=== PATIENT | female | born 1965 | race Caucasian/White ===

== ENCOUNTER 2020-02-25 22:19 | Emergency (ER) | payer OTHER ==
[2020-02-25 22:29] VITALS: TEMP 97.6
[2020-02-25] MEDS ORDERED: diphenhydrAMINE 50 MG/ML 1 ML VIAL IVP STA (22:35)
[2020-02-25] MEDS ORDERED: SODIUM CHLORIDE 0.9% 1,000 ML IV STA (22:35)
[2020-02-25] MEDS ORDERED: HYDROmorphone 0.5 MG/0.5 ML SYRINGE IVP STA (22:35)
[2020-02-25] MEDS ORDERED: METOCLOPRAMIDE 5 MG/ML 2 ML VIAL IVP STA (22:35)
[2020-02-25 23:08] LABS: Basophils # (A) 0.1 k/uL (0-0.2); Basophils % (A) 1 %; Eosinophils # (A) 0.1 k/uL (0-0.7); Eosinophils % (A) 1 %; HCT 37.7 % (34.0-46.0); HGB 12.9 gm/dL (11.4-16.0); Lymphocytes # (A) 2.9 k/uL (1.0-4.8); Lymphocytes % (A) 32 %; MCH 33.3 pg (25.0-35.0); MCHC 34.3 g/dL (31.0-37.0); MCV 97.1 fL (80.0-100.0); Mean Platelet Volume 7.3; Monocytes # (A) 0.4 k/uL (0-1.0); Monocytes % (A) 5 %; Neutrophils # (A) 5.4 k/uL (1.3-7.7); Neutrophils % (A) 60 %; Platelet Count 264 k/uL (150-450); RBC 3.89 m/uL (3.80-5.40); RDW 12.5 % (11.5-15.5)
[2020-02-25 23:15] LABS: African American GFR (CKD) >90 (>60 ml/min/1.73 sqM); Albumin 4.1 g/dL (3.5-5.0); Amylase 86 U/L (30-110); Anion Gap 8 mmol/L; Carbon Dioxide 21 mmol/L (22-30); Chloride 109 mmol/L (98-107); Glucose 149 mg/dL (74-99); Non-African American GFR(CKD) >90 (>60 ml/min/1.73 sqM); Sodium 138 mmol/L (137-145); Total Bilirubin 0.5 mg/dL (0.2-1.3); Total Protein 6.9 g/dL (6.3-8.2)
[2020-02-25 23:17] LABS: ALT 19 U/L (4-34); AST 29 U/L (14-36); Blood Urea Nitrogen 25 mg/dL (7-17); Potassium 4.3 mmol/L (3.5-5.1)
[2020-02-25 23:18] LABS: Alkaline Phosphatase 73 U/L (38-126)
--- NOTE | 2020-02-26 00:43 | US ---
EXAMINATION TYPE: US abdomen limited DATE OF EXAM: 02/26/2020 COMPARISON: NONE CLINICAL HISTORY: RUQ pain; vomiting. Difficult and limited exam due to overlying bowel gas EXAM MEASUREMENTS: Liver Length: 16.2 cm Gallbladder Wall: 0.4 cm CBD: 0.4 cm Right Kidney: 4.7 cm Pancreas: Obscured by bowel gas Liver: Limited visualization. Visualized portions appear wnl Gallbladder: Wall thickened, slightly hydropic. Possible tiny echogenic foci visualized Evidence for sonographic Fish's sign: Yes CBD: wnl as visualized Right Kidney: Unable to visualized in it's entirety due to overlying bowel gas. wnl as visualized IMPRESSION: No gallstones or dilated ducts. Gallbladder wall borderline thickened. No pericholecystic fluid seen.
[2020-02-26] MEDS ORDERED: ONDANSETRON 4 MG ODT STARTER PACK 2 TAB BTL PO STA (01:18)
--- NOTE | 2020-02-26 01:20 | ED ---
Abdominal Pain HPI - General Chief Complaint: Abdominal Pain Stated Complaint: Abd pain Time Seen by Provider: 02/25/20 22:33 Source: patient, EMS Mode of arrival: EMS Limitations: no limitations - History of Present Illness Initial Comments: 55-year-old female patient presents to the emergency department today for evaluation of right upper quadrant abdominal pain and vomiting. Patient states that she started vomiting approximately an hour and half ago. States that she became sweaty when this occurred. She did come in by ambulance did receive Zofr an which did not help. Patient states she was feeling fine throughout the day. She denies any torso breath, chest pain, or upper back pain. Denies any fever or chills. Symptoms started about 1.5 hours after eating a left over sub. Denies history of abdominal surgery. Denies constipation or diarrhea. Denies any hematochezia, melena, or hematemesis. Patient denies any recent rash, cough, shortness of breath, chest pain, numbness, tingling, dizziness, weakness, hematuria, dysuria, urinary urgency, urinary frequency, headache, visual changes, or any other complaints. - Related Data Allergies Allergy/AdvReac Type Severity Reaction Status Date / Time No Known Allergies Allergy Verified 02/25/20 22:29 Review of Systems ROS Statement: Those systems with pertinent positive or pertinent negative responses have been documented in the HPI. ROS Other: All systems not noted in ROS Statement are negative. Past Medical History Past Medical History: Thyroid Disorder History of Any Multi-Drug Resistant Organisms: None Reported Past Surgical History: Bariatric Surgery Additional Past Surgical History / Comment(s): bariatric sleeve Past Psychological History: No Psychological Hx Reported Smoking Status: Current every day smoker Past Alcohol Use History: None Reported Past Drug Use History: None Reported General Exam Limitations: no limitations General appearance: alert, in no apparent distress, other (This is a well- developed, well-nourished adult female patient in no acute distress. Vital sig ns upon presentation are temperature 97.6F, pulse 58, respirations 20, blood pressure 124/73, pulse ox 100% on room air.) Eye exam: Present: normal appearance, PERRL, EOMI. Absent: scleral icterus, conjunctival injection, periorbital swelling Respiratory exam: Present: normal lung sounds bilaterally. Absent: respiratory distress, wheezes, rales, rhonchi, stridor Cardiovascular Exam: Present: regular rate, normal rhythm, normal heart sounds. Absent: systolic murmur, diastolic murmur, rubs, gallop, clicks GI/Abdominal exam: Present: soft, tenderness (Upper abdominal tenderness), normal bowel sounds. Absent: distended, guarding, rebound, rigid Neurological exam: Present: alert, oriented X3, CN II-XII intact Psychiatric exam: Present: normal affect, normal mood Skin exam: Present: warm, dry, intact, normal color. Absent: rash Course Vital Signs 02/25/20 02/26/20 22:21 01:01 Temperature 97.6 F Pulse Rate 58 L 56 L Respiratory 20 16 Rate Blood Pressure 124/73 88/45 O2 Sat by Pulse 100 96 Oximetry Medical Decision Making - Medical Decision Making 55-year-old female patient presents to the emergency department today for evaluation of upper abdominal pain and vomiting. Physical examination did reveal some mild upper abdominal tenderness. Labs reviewed and are unremarkable. Ultrasound of the right upper quadrant was obtained and did show a mildly thickened gallbladder wall with no dilated ducts or pericholecystic fluid. She is afebrile. She is given IV fluids, nausea medication. Upon reevaluation she does report improvement of symptoms. She is resting comfortably in bed. She does feel comfortable being discharged home at this time. She'll be given a starter pack for Zofran. She is instructed to start with clear liquid diet and advance as tolerated. Return parameters were discussed in detail. She verbalizes understanding and agrees with this plan. - Lab Data Result diagrams: 02/25/20 22:50 02/25/20 22:50 Lab Results 02/25/20 02/25/20 02/25/20 Range/Units 22:50 22:50 22:50 WBC 9.0 (3.8-10.6) k/uL RBC 3.89 (3.80-5.40) m/uL Hgb 12.9 (11.4-16.0) gm/dL Hct 37.7 (34.0-46.0) % MCV 97.1 (80.0-100.0) fL MCH 33.3 (25.0-35.0) pg MCHC 34.3 (31.0-37.0) g/dL RDW 12.5 (11.5-15.5) % Plt Count 264 (150-450) k/uL Neutrophils % 60 % Lymphocytes % 32 % Monocytes % 5 % Eosinophils % 1 % Basophils % 1 % Neutrophils # 5.4 (1.3-7.7) k/uL Lymphocytes # 2.9 (1.0-4.8) k/uL Monocytes # 0.4 (0-1.0) k/uL Eosinophils # 0.1 (0-0.7) k/uL Basophils # 0.1 (0-0.2) k/uL Sodium 138 (137-145) mmol/L Potassium 4.3 (3.5-5.1) mmol/L Chloride 109 H (98-107) mmol/L Carbon Dioxide 21 L (22-30) mmol/L Anion Gap 8 mmol/L BUN 25 H (7-17) mg/dL Creatinine 0.68 (0.52-1.04) mg/dL Est GFR (CKD-EPI)AfAm >90 (>60 ml/min/1.73 sqM) Est GFR (CKD-EPI)NonAf >90 (>60 ml/min/1.73 sqM) Glucose 149 H (74-99) mg/dL Calcium 10.0 (8.4-10.2) mg/dL Total Bilirubin 0.5 (0.2-1.3) mg/dL AST 29 (14-36) U/L ALT 19 (4-34) U/L Alkaline Phosphatase 73 (38-126) U/L Troponin I <0.012 (0.000-0.034) ng/mL Total Protein 6.9 (6.3-8.2) g/dL Albumin 4.1 (3.5-5.0) g/dL Amylase 86 (30-110) U/L Lipase 114 (23-300) U/L - EKG Data -: EKG Interpreted by Fl EKG Comments: EKG obtained at 2235 shows sinus tachycardia with a ventricular rate of 54, MO interval 148, QRS duration 80, QT 486, QTc 460. No evidence of ST elevation or depression. - Radiology Data Radiology results: report reviewed Ultrasound of the right upper quadrant abdomen is obtained. Report was reviewed in its entirety. Impression by Dr. Mcwilliams shows no gallstones or dilated ducts. Gallbladder wall borderline thickened. No pericholecystic fluid seen. Disposition Clinical Impression: Abdominal pain, Vomiting Disposition: HOME SELF-CARE Condition: Good Instructions (If sedation given, give patient instructions): Acute Nausea and Vomiting (ED), Abdominal Pain (ED) Additional Instructions: Start with clear liquid diet and advance as tolerated. Take zofran every 6 hours as needed. Follow-up with the primary care physician for recheck in 1-2 days. Return to the emergency department immediately for any new, worsening, or concerning symptoms. Is patient prescribed a controlled substance at d/c from ED?: No Referrals: Prince Gamble MD [Primary Care Provider] - 1-2 days Time of Disposition: 01:19
[2020-02-26 01:38] VITALS: BP 108/85; PULSE 65; RESP 18
== END 2020-02-26 01:38 | disposition home or self-care (01) ==
LOC: EC 22:19
DX: R10.11 Right upper quadrant pain (principal); R11.10 Vomiting, unspecified; F17.200 Nicotine dependence, unspecified, uncomplicated
CPT/HCPCS: 93005; 80053; 82150; 83690; 84484; 85025; 76705; 99285; 96374; 96375 ×2; 96361; J1200; J2765; S0119; J1170

== ENCOUNTER → 2020-03-18 | Outpatient (CLI) | payer OTHER ==
--- NOTE | 2020-03-18 09:54 | NM ---
EXAMINATION TYPE: NM hepatobiliary w EF DATE OF EXAM: 03/18/2020 COMPARISON: Ultrasound abdomen limited February 26, 2020. HISTORY: Right upper quadrant pain and vomiting. TECHNIQUE: After the intravenous administration of 4.7 mCi Tc 99m Mebrofenin hepatobiliary scintigrap hy is performed. Immediate images post injection. FINDINGS: There is satisfactory initial accumulation of tracer by the liver. The gallbladder is visualized wit hin 30 minutes. The small bowel activity is noted within 60 minutes. At one hour 8 ounces of oral e nsure plus is given to mimic CCK and gallbladder ejection fraction is calculated at less than 5 %, di minished from the normal range. Therefore there is no scintigraphic evidence of cystic or common tai e duct obstruction to suggest acute cholecystitis . Overall diminished ejection fraction consistent w ith chronic cholecystitis and underlying gallbladder dyskinesia IMPRESSION: Ejection fraction measured less than 5%, scintigraphic findings consistent with underlyin g gallbladder dyskinesia.
== END | disposition home or self-care (01) ==
LOC: RADNMMAIN 06:40
PROVIDERS: ATTEND Internal Medicine
DX: R10.11 Right upper quadrant pain (principal)
CPT/HCPCS: 78226; A9537

== ENCOUNTER → 2020-04-06 | Outpatient (CLI) | payer OTHER ==
--- NOTE | 2020-04-06 11:28 | XR ---
EXAMINATION TYPE: XR chest 2V DATE OF EXAM: 04/06/2020 COMPARISON: NONE HISTORY: Shortness of breath TECHNIQUE: Frontal and lateral views of the chest are obtained. FINDINGS: Scattered senescent parenchymal changes noted. Hyperinflation compatible with COPD. Basilar atelectasis and/or infiltrates with small pleural effusions. Correlate for pneumonia. Progres s studies are recommended. Heart size is stable. Mediastinal structures are stable and grossly unremarkable. No evidence for hilar prominence. Degenerative changes dorsal spine. IMPRESSION: 1. Basilar atelectasis and/or infiltrates with small pleural effusions. Correlate for pneumonia. Prog ress studies are recommended.
--- NOTE | 2020-04-08 11:12 | P.PN ---
Progress Note - Text Progress Note Date: 04/08/20 Patient called at home. Patient has pre-existing history of bilateral pleural effusions due to recent systemic inflammatory response syndrome from gallstone pancreatitis in the last 3 weeks. Repeat chest x-ray demonstrated persistent bilateral pleural effusion. Patient reports using her incentive spirometer and taking antibiotics at home. Patient advised to avoid tobacco use. Potential repeat chest x-ray including labs also described to patient.
== END | disposition home or self-care (01) ==
LOC: RADXRMAIN 10:53
PROVIDERS: ATTEND Surgery Plastic and Reconstructive Surgery
DX: J98.11 Atelectasis (principal); J90 Pleural effusion, not elsewhere classified
CPT/HCPCS: 71046

== ENCOUNTER 2020-04-11 06:14 | Day surgery (SDC) | payer OTHER ==
[2020-04-04 13:41] VITALS: BMI 30.5
--- NOTE | 2020-04-10 18:03 | P.GSHP ---
History of Present Illness H&P Date: 04/11/20 CHIEF COMPLAINT: Cholecystitis HISTORY OF PRESENT ILLNESS: The patient is a 55-year-old female who presents with history of epigastric including right upper quadrant abdominal pain and recent gallstone pancreatitis. She underwent diagnostic studies for her gallbladder. Separately her clinical picture was consistent with cholecystitis. Now she presents for surgical intervention. PAST MEDICAL HISTORY: Please see list PAST SURGICAL HISTORY: Please see list MEDICATIONS: Please see list ALLERGIES: Please see list SOCIAL HISTORY: Please see list FAMILY HISTORY: Please see list REVIEW OF ORGAN SYSTEMS: CONSTITUTIONAL: No reports of fevers or chills. HEENT: Denies any troubles with the vision or hearing. ENDOCRINE: No reports of hypothyroidism. No diabetes. RESPIRATORY: Recent pneumonia. CARDIOVASCULAR: Denies chest pain or palpitations GI: No blood in stools or constipation. MUSCULOSKELETAL: Has occasional joint pain including back pain. NEURO: No seizure disorders or headaches. No recent stroke. PSYCH: No depression or suicidal ideation. GENITOURINARY: No active blood in urine. No urinary hesitancy. HEMATOLOGIC: No personal or family history of DVTs or pulmonary emboli. SKIN: No skin cancer. PHYSICAL EXAM: VITAL SIGNS: Afebrile vital signs stable GENERAL: Well-developed pleasant in no acute distress. HEENT: No scleral icterus. Extraocular movements grossly intact. Moist buccal mucosa. NECK: Supple without lymphadenopathy. CHEST: Unlabored respirations. Equal bilateral excursions. CARDIOVASCULAR: Regular rate regular rhythm rhythm. Distal 2+ pulses. ABDOMEN: Soft, nondistended. Tender along the epigastrium and right upper quadrant. MUSCULOSKELETAL: No clubbing, cyanosis, or edema. NEURO: Cranial nerves II to XII within normal limits. No focal or lateralizing signs. PSYCH: Alert and oriented to person, place and time. SKIN: Well-perfused good skin turgor. ASSESSMENT: 1. Epigastric and right upper quadrant abdominal pain 2. Chronic cholecystitis 3. Symptomatic gallstones. 4. Recent gallstone pancreatitis PLAN: 1. Will need a robotic cholecystectomy possible open. Benefits and risks were described. 2. Heparin for DVT prophylaxis 5000 units. 3. Antibiotic prophylaxis. Past Medical History Past Medical History: Thyroid Disorder Additional Past Medical History / Comment(s): currently I/P in [facility] for cholecystitis History of Any Multi-Drug Resistant Organisms: None Reported Past Surgical History: Bariatric Surgery Additional Past Surgical History / Comment(s): gastric sleeve Past Anesthesia/Blood Transfusion Reactions: No Reported Reaction Smoking Status: Current every day smoker - Past Family History Mother Family Medical History: Cancer Medications and Allergies Home Medications Medication Instructions Recorded Confirmed Type Levothyroxine Sodium [Synthroid] 88 mcg PO DAILY 03/31/20 03/31/20 History Amoxic-Pot Clav 875-125Mg 1 tab PO Q12HR 04/04/20 04/04/20 History [Augmentin 875-125] Hydrocodone/Acetaminophen [[place] 1 tab PO TID PRN 04/04/20 04/04/20 History 7.5-325] Allergies Allergy/AdvReac Type Severity Reaction Status Date / Time No Known Allergies Allergy Verified 03/31/20 09:40
[~2020-04-11 06:14] MED LIST: ACETAMINOPHEN TAB 500 MG TAB PO STA; DEXAMETHASONE SOD PHOSPHATE 10 MG/ML 1 ML VIAL IV ONE; GABAPENTIN 300 MG CAP PO STA; HEPARIN SODIUM,PORCINE 5,000 UNIT/ML 1 ML VIAL SQ ONE; HYDROmorphone 0.5 MG/0.5 ML SYRINGE IVP PRN; INDOCYANINE GREEN 25 MG VIAL IV STA; LACTATED RINGERS 1,000 ML IV SCH; ONDANSETRON 4 MG/2 ML VIAL IVP ONE
[2020-04-11] MEDS ORDERED: ACETAMINOPHEN TAB 500 MG TAB ONE (07:01)
[2020-04-11] MEDS ORDERED: ONDANSETRON 4 MG/2 ML VIAL ONE (07:01)
[2020-04-11] MEDS ORDERED: HEPARIN SODIUM,PORCINE 5,000 UNIT/ML 1 ML VIAL ONE (07:01)
[2020-04-11 07:29] LABS: Basophils # (A) 0.1 k/uL (0-0.2); Basophils % (A) 1 %; Eosinophils # (A) 0.2 k/uL (0-0.7); Eosinophils % (A) 1 %; HCT 38.3 % (34.0-46.0); HGB 12.4 gm/dL (11.4-16.0); Lymphocytes # (A) 2.1 k/uL (1.0-4.8); Lymphocytes % (A) 19 %; MCH 31.7 pg (25.0-35.0); MCHC 32.4 g/dL (31.0-37.0); MCV 97.8 fL (80.0-100.0); Mean Platelet Volume 7.8; Monocytes # (A) 0.5 k/uL (0-1.0); Monocytes % (A) 4 %; Neutrophils # (A) 8.2 k/uL (1.3-7.7); Neutrophils % (A) 73 %; RBC 3.91 m/uL (3.80-5.40); RDW 12.7 % (11.5-15.5); WBC 11.1 k/uL (3.8-10.6)
[2020-04-11 07:42] LABS: Platelet Count 626 k/uL (150-450)
[2020-04-11] MEDS ORDERED: ROCURONIUM BROMIDE 10 MG/ML 5 ML VIAL IV ONE (07:45)
[2020-04-11] MEDS ORDERED: LIDOCAINE 1% INJ 10MG/ML (20 ML MDV) ONE (07:45)
[2020-04-11] MEDS ORDERED: NEOSTIGMINE 1 MG/ML 10 ML VIAL ONE (07:45)
[2020-04-11] MEDS ORDERED: PROPOFOL 10 MG/ML 20 ML VIAL IV ONE (07:45)
[2020-04-11] MEDS ORDERED: KETOROLAC 15 MG/ML 1 ML VIAL ONE (07:45)
[2020-04-11] MEDS ORDERED: SUCCINYLCHOLINE CHLORIDE 100 MG/5 ML SYR IV ONE (07:45)
[2020-04-11] MEDS ORDERED: fentaNYL (PF) 50 MCG/ML 2 ML AMP ONE (07:45)
[2020-04-11] MEDS ORDERED: ePHEDrine SULFATE/0.9% NACL/PF 50 MG/5 ML SYRINGE IV ONE (07:45)
[2020-04-11] MEDS ORDERED: MIDAZOLAM 2 MG/2 ML VIAL ONE (07:45)
[2020-04-11] MEDS ORDERED: GLYCOPYRROLATE 0.2 MG/ML 2 ML VIAL ONE (07:45)
[2020-04-11] MEDS ORDERED: HYDROmorphone (PF) 1 MG/ML ONE (07:45)
--- NOTE | 2020-04-11 07:46 | XR ---
EXAMINATION TYPE: XR chest 2V DATE OF EXAM: 04/11/2020 COMPARISON: 04/06/2020 INDICATION: Atelectasis TECHNIQUE: Frontal and lateral views of the chest are obtained. FINDINGS: The heart size is normal. The pulmonary vasculature is normal. Some mild streak opacities in the periphery of the right midlung likely some atelectasis. Previous pl eural effusions have resolved.. IMPRESSION: 1. Mild streak atelectasis right midlung 2. Resolution previous pleural effusions
[2020-04-11 08:16] LABS: ALT 47 U/L (4-34); AST 37 U/L (14-36); African American GFR (CKD) >90 (>60 ml/min/1.73 sqM); Alkaline Phosphatase 64 U/L (38-126); Anion Gap 5 mmol/L; Blood Urea Nitrogen 14 mg/dL (7-17); Calcium 9.3 mg/dL (8.4-10.2); Carbon Dioxide 24 mmol/L (22-30); Chloride 110 mmol/L (98-107); Glucose 105 mg/dL (74-99); Non-African American GFR(CKD) 87 (>60 ml/min/1.73 sqM); Potassium 4.6 mmol/L (3.5-5.1); Sodium 139 mmol/L (137-145); Total Bilirubin 0.7 mg/dL (0.2-1.3); Total Protein 6.2 g/dL (6.3-8.2)
[2020-04-11] MEDS ORDERED: LIDOCAINE 1%-EPI 1:100,000 20 ML VIAL SQ ONE (08:35)
[2020-04-11 09:10] VITALS: TEMP 98
[2020-04-11] MEDS ORDERED: KETOROLAC 15 MG/ML 1 ML VIAL IVP PRN (09:13)
[2020-04-11] MEDS ORDERED: SIMETHICONE 80 MG CHEWABLE PO SCH (09:15)
--- NOTE | 2020-04-11 09:19 | P.OP ---
Date of Procedure: 04/11/20 Description of Procedure: SURGEON: FARHANA DALAL MD PREOPERATIVE DIAGNOSES: 1. Gallstone pancreatitis with acute cholecystitis 2. History of systemic inflammatory response syndrome 3. History of bilateral pleural effusion 4. Tobacco use disorder 5. History of sleeve gastrectomy 6. Hypothyroidism 7. Leukocytosis POSTOPERATIVE DIAGNOSES: 1. Gallstone pancreatitis with acute cholecystitis 2. History of systemic inflammatory response syndrome 3. History of bilateral pleural effusion 4. Tobacco use disorder 5. History of sleeve gastrectomy 6. Hypothyroidism 7. Leukocytosis OPERATION: Robotic-assisted da Terry Xi laparoscopic cholecystectomy, multiport with FIREFLY ESTIMATED BLOOD LOSS: 5 mL. SPECIMENS REMOVED: Gallbladder. COMPLICATIONS: None. OPERATIVE FINDINGS: 1. Edema long gallbladder wall consistent with cholecystitis. 2. Small less than 1 cm inguinal hernias bilaterally 3. Peritoneal adhesions along the anterior surface midbody sleeve gastrectomy INDICATIONS: The patient is a 55-year-old female who was recently hospitalized for acute gallstone pancreatitis with systemic inflammatory response syndrome and bilateral pleural effusions. She was recently discharged within 2 weeks at outside facility and placed on antibiotics for close monitoring of her respiratory status. Chest x-ray on repeat demonstrated resolution of her pleural effusions. She was on antibiotics. Patient in advance understood that she is elevated risk for complications due to history of tobacco abuse and recent pleural effusions. Patient reported decreased tobacco use. She also used her incentive spirometer. She denied dyspnea. Robotic assisted laparoscop ic approach was described. Benefits and risks of the procedure including but not limited to bleeding, infection, injury to the biliary tree was described. Informed consent was obtained. DESCRIPTION OF PROCEDURE: Patient was brought to the operating room, placed in supine position. After general induction, the abdomen had been prepped and draped in standard sterile fashion. The robotic da Terry XI system was primed. After a timeout protocol was performed, the patient had been prepped and draped in standard sterile fashion. The patient was injected with indocyanine green. A 5 mm 0 degrees laparoscopic trocar entry was performed along the left upper quadrant. The abdomen insufflated to 15 mmHg pressure which was tolerated well. Diagnostic laparoscopy demonstrated no injury to bowel viscera or mesentery. The liver surface was unremarkable. Adhesions along the mid body of the sleeve were identified to the abdominal wall. Next, two 8 mm robotic ports were placed along the right upper abdomen. The camera 8-mm port was maintained along the epigastrium. Another 8 mm port was placed along the left upper abdominal wall after exchanging the 5 mm port. Please note that the ports were placed at least 10 to 15 cm away from the target anatomy of the gallbladder. The robot was docked along the left lateral abdomen. The patient was repositioned in reverse Trendelenburg position. Using a grasper for arm 3, a grasper for arm 4, including hook cautery for arm 1, the robotic system was docked and primed as described. Instruments were interchanged by the information technology assistant including hook cautery, Bovie cautery and clip appliers. I had sat at the console. The gallbladder fundus was retracted over the dome of the liver. Initial attention was brought to the infundibulum including cystic lymph node. Initial dissection was performed over the cystic lymph node at the infundibulum using hook cautery. The infundibulum was retracted laterally to expose the cystic duct away from the common bile duct. The cystic duct including the cystic artery were dissected free from its surrounding tissue. FIREFLY was used to identify the cystic artery and cystic structures. A critical view of safety was obtained. Large PLASTIC clips were used throughout the entire case. Using a clip power electronics research engineer, 2 clips were placed at the junction of the infundibulum and cystic duct. The cystic duct was divided between clips. Next, the cystic artery was similarly clipped and cauterized. Electro-Bovie cautery was used to remove the gallbladder from the hepatic fossa. Hemostasis was checked and found to be adequate. The robot was undocked. I re-scrubbed into the case. Using a 10 mm Endo Catch bag via the left upper quadrant incision, the specimen was removed from the abdominal cavity. All pneumoperitoneum instruments were evacuated from the abdominal cavity. The incisions were reapproximated using 4-0 Monocryl in an interrupted subcuticular fashion. Fascial defects were less than 8 mm in size. Please note along the trocar sites, local anesthetic was placed as a field block prior to insertion of all instruments. Liquid glue was applied to the skin. At the end of the procedure needle, sponge, and instrument count had been verified correct by the certified surgical tech/first assistant. The patient was transferred to postanesthesia care unit in stable condition. Intraoperative films were shared with the patient's family who were pleased with the level of care. Plan - Discharge Summary Discharge Rx Participant: No New Discharge Prescriptions: New Ibuprofen [Motrin] 600 mg PO Q8HR PRN #30 tab PRN Reason: Pain Acetaminophen Tab [Tylenol Tab] 1,000 mg PO Q6HR PRN #30 tablet PRN Reason: Pain No Action Levothyroxine Sodium [Synthroid] 88 mcg PO DAILY Amoxic-Pot Clav 875-125Mg [Augmentin 875-125] 1 tab PO Q12HR Hydrocodone/Acetaminophen [[place] 7.5-325] 1 tab PO TID PRN PRN Reason: Pain Discharge Medication List Levothyroxine Sodium [Synthroid] 88 mcg PO DAILY 03/31/20 [History] Amoxic-Pot Clav 875-125Mg [Augmentin 875-125] 1 tab PO Q12HR 04/04/20 [History] Hydrocodone/Acetaminophen [[place] 7.5-325] 1 tab PO TID PRN 04/04/20 [History] Acetaminophen Tab [Tylenol Tab] 1,000 mg PO Q6HR PRN #30 tablet 04/11/20 [Rx] Ibuprofen [Motrin] 600 mg PO Q8HR PRN #30 tab 04/11/20 [Rx] Follow up Appointment(s)/Referral(s): Farhana Dalal MD [STAFF PHYSICIAN] - 04/12/20 Patient Instructions/Handouts: *Surgery [facility] - (Anesthesia) Discharge Instructions Outpatient Surgery, Low Fat Diet (DC), Laparoscopic Cholecystectomy (DC) Activity/Diet/Wound Care/Special Instructions: No lifting over 10 pounds in 2 weeks until Apr 25December shower. No bath tub soaks for two weeks until Apr 25 Diet as tolerated. No driving while on narcotics. Use Tylenol and ibuprofen or Aleve scheduled for the next 24-48 hours for best pain relief. Use ice along incisions for the today to prevent swelling. For today, avoid high fat foods Discharge Disposition: HOME SELF-CARE
[2020-04-11] MEDS ORDERED: LACTATED RINGERS 1,000 ML IV ONE (09:24)
[2020-04-11 11:18] VITALS: RESP 16
[2020-04-11 12:27] VITALS: BP 119/60; PULSE 71
== END 2020-04-11 12:27 | disposition home or self-care (01) ==
LOC: OR 06:14
PROVIDERS: ATTEND Surgery Plastic and Reconstructive Surgery
DX: K80.12 Calculus of gallbladder with acute and chronic cholecystitis without obstruction (principal); K85.10 Biliary acute pancreatitis without necrosis or infection; Z98.84 Bariatric surgery status; E03.9 Hypothyroidism, unspecified; F17.200 Nicotine dependence, unspecified, uncomplicated; D72.829 Elevated white blood cell count, unspecified; R65.10 Systemic inflammatory response syndrome (SIRS) of non-infectious origin without acute organ dysfunction; J98.11 Atelectasis; K40.20 Bilateral inguinal hernia, without obstruction or gangrene, not specified as recurrent; K66.0 Peritoneal adhesions (postprocedural) (postinfection); E07.9 Disorder of thyroid, unspecified; Z79.890 Hormone replacement therapy; Z79.2 Long term (current) use of antibiotics
CPT/HCPCS: 88304; 80053; 85025; 71046; 47563; J2250; J1644; J1100; J2710; J0690; J2405; J2001; J3010; J1170; J1885; J0330; J2704

== ENCOUNTER → 2021-10-18 | Outpatient (CLI) | payer OTHER ==
--- NOTE | 2021-10-18 13:29 | US ---
EXAMINATION TYPE: US thyroid st tissue head/neck DATE OF EXAM: 10/18/2021 COMPARISON: NONE CLINICAL HISTORY: E03.9 HYPOTHYROIDISM. Palpable lump left neck for the past 4 days with history of h ypothyroidism. GLAND SIZE: Right Lobe: 4.3 x 1.4 x 1.6 cm Overall Parenchyma: heterogenous Left Lobe: 4.5 x 1.5 x 0.8 cm Overall Parenchyma: homogeneous Isthmus Thickness: 0.3 cm NODULES RIGHT: # of nodules measured on right: 3 1. 0.3 X 0.3 x 0.3 cm, upper lateral, solid or almost completely solid, hypoechoic nodule, which is Same, with ill-defined margins, without echogenic foci. 2. 0.4 X 0.3 x 0.3 cm, upper lateral, solid or almost completely solid, hypoechoic nodule, which i s wider than tall, with ill-defined margins, without echogenic foci. 3. 1.5 X 0.8 x 0.6 cm, mid medial, solid or almost completely solid, hypoechoic nodule, which is wi nimco than tall, with ill-defined margins, without echogenic foci. LEFT: # of nodules measured on left: 0 ISTHMUS: # of nodules measured in the isthmus: 0 Bilateral neck scanned, no evidence of lymphadenopathy. Left neck lymph node measuring 1.5 x 0.5 x 0.3 cm. Possible left submandibular gland seen in area of palpable lump measuring 4.2x 2.8 x 1.6 cm. Contralateral submandibular gland scanned for comparison, measuring 3.7 x 2.6 x 1.5cm. IMPRESSION: 1. Nonspecific thyroid nodularity 2. Fullness of the left submandibular gland which corresponds to the site of clinical concern. Distin ct lesion of the submandibular gland is not identified. Correlate for sialoadenitis
== END | disposition home or self-care (01) ==
LOC: RADUSWWP 12:39
PROVIDERS: ATTEND Family Medicine
DX: I88.9 Nonspecific lymphadenitis, unspecified (principal); E03.9 Hypothyroidism, unspecified
CPT/HCPCS: 76536

== ENCOUNTER → 2021-11-09 | Outpatient (CLI) | payer OTHER ==
--- NOTE | 2021-11-10 09:15 | US ---
EXAMINATION TYPE: US thyroid st tissue head/neck DATE OF EXAM: 11/09/2021 COMPARISON: NONE CLINICAL HISTORY: I88.9. Thyroid nodule GLAND SIZE: Right Lobe: 4.5 x 1.0 x 1.4 cm Overall Parenchyma: homogenous Left Lobe: 3.8 x 1.1 x 1.3 cm Overall Parenchyma: homogeneous Isthmus Thickness: .2 cm NODULES RIGHT: # of nodules measured on right: 0 LEFT: # of nodules measured on left: 0 ISTHMUS: # of nodules measured in the isthmus: 0 Thyroid echotexture is mildly heterogeneous in the right similar to prior with focus of ill-defined l ow echo, previously identified subcentimeter hypoechoic nodules are less well-defined, and left lobe shows no discrete mass Benign-appearing lymph nodes noted incidentally and bilaterally right 1.3 x .3 x 7cm Left .5 x .3 x . 5 cm. IMPRESSION: Abnormal hypoechogenicity within the right lobe of the gland, consider follow-up
== END | disposition home or self-care (01) ==
LOC: RADUSWWP 16:06
PROVIDERS: ATTEND Family Medicine
DX: Q89.9 Congenital malformation, unspecified (principal)
CPT/HCPCS: 76536

== ENCOUNTER 2021-11-28 12:30 | Day surgery (SDC) | payer OTHER ==
--- NOTE | 2021-11-28 14:07 | US ---
ULTRASOUND GUIDED FNA THYROID BIOPSY: CLINICAL HISTORY: Requested right thyroid nodule FINDINGS: The procedure was explained to the patient. The risks, complications, benefits and alternatives were discussed and any questions were answered. Informed consent was obtained. Patient was placed supin e on the ultrasound table and prepped and draped in the usual sterile fashion. Utilizing a 25 gauge needle, five passes were made into the requested right thyroid nodule. Patient was stable throughout the procedure. Pathology is pending. All elements of maximal barrier technique were utilized. IMPRESSION: 1. Successful ultrasound guided FNA thyroid biopsy.
== END 2021-11-28 13:35 | disposition home or self-care (01) ==
LOC: RADPROMAIN 12:30
PROVIDERS: ATTEND Family Medicine
DX: E04.1 Nontoxic single thyroid nodule (principal)
CPT/HCPCS: 10005; 88173; 88305

== ENCOUNTER → 2022-04-23 | Outpatient (CLI) | payer OTHER ==
--- NOTE | 2022-04-23 09:13 | US ---
EXAMINATION TYPE: US thyroid st tissue head/neck DATE OF EXAM: 04/23/2022 COMPARISON: Thyroid US's dated 11/09/2021 & 10/18/2021 CLINICAL HISTORY: E04.1 THYROID NODULE. GLAND SIZE: Right Lobe: 4.3 x 1.4 x 1.5 cm Overall Parenchyma: homogenous Left Lobe: 4.1 x 1.0 x 1.2 cm Overall Parenchyma: homogeneous Isthmus Thickness: 0.3 cm NODULES RIGHT: # of nodules measured on right: 2 1. 1.2 X 0.5 x 0.7 cm, mid medial, solid or almost completely solid, isoechoic nodule, which is wid er than tall, with smooth margins, without echogenic foci. TR-3 Prior size: 1.5 x 0.8 x 0.6 cm 2. 0.3 X 0.2 x 0.4 cm, upper lateral, solid or almost completely solid, hypoechoic nodule, which is wider than tall, with smooth margins, without echogenic foci. TR-4 Prior size: 0.3 x 0.3 x 0.3 cm LEFT: # of nodules measured on left: 0 ISTHMUS: # of nodules measured in the isthmus: 0 Bilateral neck scanned, normal appearing lymph node right lateral neck with central fatty hilum measu ring 0.5 cm short axis. IMPRESSION: 1. Stable mid right thyroid lobe 1.2 cm TR-3 nodule which has been biopsied. Correlation with biopsy results is recommended. 2. Stable upper right thyroid lobe 0.3 cm TR-4 nodule. No follow-up is recommended based on size. 2017 ACR TI-RADS LEVEL: TR-RADS 4 - Moderately Suspicious: Follow if > 1 cm, FNA if > 1.5 cm *Highest TI-RADS level nodule reported
== END | disposition home or self-care (01) ==
LOC: RADUSWWP 08:24
PROVIDERS: ATTEND Otolaryngology
DX: E04.1 Nontoxic single thyroid nodule (principal)
CPT/HCPCS: 76536

== ENCOUNTER → 2022-06-15 | Outpatient (CLI) | payer OTHER ==
--- NOTE | 2022-06-15 11:01 | US ---
EXAMINATION TYPE: US carotid duplex BILAT DATE OF EXAM: 06/15/2022 COMPARISON: NONE CLINICAL HISTORY: R55 SYNCOPE. syncope TECHNIQUE: Carotid duplex ultrasound examination. Indirect Doppler criteria was utilized. FINDINGS: EXAM MEASUREMENTS: RIGHT: Peak Systolic Velocity (PSV) cm/sec ----- Right CCA: 75 ----- Right ICA: 105.5 ----- Right ECA: 98.2 ICA/CCA ratio: 1.4 RIGHT: End Diastole cm/sec ----- Right CCA: 25.6 ----- Right ICA: 43. ----- Right ECA: 15.4 LEFT: Peak Systolic Velocity (PSV) cm/sec ----- Left CCA: 85.2 ----- Left ICA: 101.1 ----- Left ECA: 72.1 ICA/CCA ratio: 1.2 LEFT: End Diastole cm/sec ----- Left CCA: 29.9 ----- Left ICA: 44.5 ----- Left ECA: 18.3 VERTEBRALS (direction of flow): Right Vertebral: Antegrade Left Vertebral: Antegrade Rhythm: Normal ROCK CUTTER NOTES: No significant stenosis seen IMPRESSION: Less than 50% stenosis of the bilateral carotid bifurcations. Criteria for Assigning % of Stenosis / Diameter reduction (Estimation based on the indirect measurements of the internal carotid artery velocities (ICA PSV). 1. Normal (no stenosis)=ICA PSV < 125 cm/s: ratio < 2.0: ICA EDV<40 cm/s. 2. Less than 50% stenosis=ICA PSV < 125 cm/s: ratio < 2.0: ICA EDV<40 cm/s. 3. 50 to 69% stenosis=ICA PSV of 125 to 230 cm/s: ration 2.0 ? 4.0: ICA EDV 40-100 cm/s. 4. Greater than 70% stenosis to near occlusion= ICA PSV > 230 cm/s: ratio > 4.0: ICA EDV > 100 cm/s. 5. Near occlusion= ICA PSV velocities may be low or undetectable: variable ratio and ICA EDV. 6. Total occlusion=unable to detect flow.
== END | disposition home or self-care (01) ==
LOC: RADUSWWP 10:20
PROVIDERS: ATTEND Family Medicine
DX: I65.23 Occlusion and stenosis of bilateral carotid arteries (principal)
CPT/HCPCS: 93880

== ENCOUNTER → 2022-07-18 | Outpatient (CLI) | payer OTHER ==
--- NOTE | 2022-07-18 12:35 | CA ---
Stress Echo Report Gema Bo Age: 57 Gender: F : 1965 Exam Date: 07/18/2022 10:15 Exam Location: [facility] Ht (in): 66 Wt (lb): 183 Ordering Physician: Marvel Ortiz MD Referring Physician: [facility] Social Worker: NEELAM Technologist Procedure CPT: Indication: R55 SYNCOPE AND COLLAPSE ICD-9 Codes: Rhythm: Patient History: Cardiac Medications: Medications in past 24 hours: Contrast: Stress Results Protocol: Gaudencio Total dose(mL): Exercise Duration (min:sec): Max ST Depression (mm): Angina Score: Palmer Score: METS: 9.1 Resting HR: 58 Resting BP: 104 / 67 Peak HR: 150 Peak BP: 153 / 92 Max Predicted HR: 163 92 % Max Predicted HR Target HR: 139 Double Product: [id number] Stress Summary: BP Response: Reason for Termination: Reached target heart rate or work-load Cardiac Symptoms: None ECG Analysis Resting ECG: Stress ECG: Arrhythmia: Echo Analysis Resting Echo: Peak Echo Analysis: MEASUREMENTS (Male/Female) Normal Values CONCLUSIONS Average exercise capacity on a Gaudencio protocol, 7 minutes 50 seconds Normal heart rate and blood pressure response No ECG or echocardiographic evidence for ischemia Dr. Tony Gomez MD (Electronically Signed) Final Date: 18 July 2022 12:34
== END | disposition home or self-care (01) ==
LOC: RADNMMAIN 09:40
PROVIDERS: ATTEND Family Medicine
DX: Z01.818 Encounter for other preprocedural examination (principal); R55 Syncope and collapse
CPT/HCPCS: 93351

== ENCOUNTER → 2022-11-23 | Day surgery (SDC) | payer OTHER ==
[2022-11-20 10:50] VITALS: BMI 29.6
[~2022-11-23] MED LIST changes: -ACETAMINOPHEN TAB 500 MG TAB PO STA; -DEXAMETHASONE SOD PHOSPHATE 10 MG/ML 1 ML VIAL IV ONE; -GABAPENTIN 300 MG CAP PO STA; -HEPARIN SODIUM,PORCINE 5,000 UNIT/ML 1 ML VIAL SQ ONE; -HYDROmorphone 0.5 MG/0.5 ML SYRINGE IVP PRN; -INDOCYANINE GREEN 25 MG VIAL IV STA; +LIDOCAINE 1% (10MG/ML) FOR IV START INTRADERMA PRN; -ONDANSETRON 4 MG/2 ML VIAL IVP ONE; +PROPOFOL 10 MG/ML 20 ML VIAL IV ONE
[2022-11-23 11:03] VITALS: RESP 16; TEMP 98
--- NOTE | 2022-11-23 12:08 | P.PCN ---
Date of Procedure: 11/23/22 Procedure(s) Performed: BRIEF HISTORY: Patient is a 57-year-old pleasant white female scheduled for an elective colonoscopy as a part of change in bowel habits and history of colon polyps varied initially been having severe chronic constipation and diffuse abdominal pain of several months duration. PROCEDURE PERFORMED: Colonoscopy. PREOPERATIVE DIAGNOSIS: Change in bowel habits and history of colon IV sedation per Anesthesia. PROCEDURE: After informed consent was obtained, the patient, was brought into the endoscopy unit. IV sedation was administered by Anesthesia under continuous monitoring. Digital rectal examination was normal. Initially the Olympus CF-160 flexible video colonoscope was then inserted in the rectum, gradually advanced into the cecum without any difficulty. Careful examination was performed as the scope was gradually being withdrawn. Ileocecal valve and the appendiceal orifice were visualized and appeared normal. Prep was excellent. Mucosa of the cecum, ascending colon, transverse colon, descending colon, sigmoid colon, and rectum appeared normal. Scattered sigmoid diverticulosis. Retroflexion was performed in the rectum and no lesions were seen. The patient tolerated the procedure well. IMPRESSION: Normal-appearing colon from rectum to cecum with no evidence of colorectal neoplasia. Scattered sigmoid diverticulosis RECOMMENDATIONS: Findings of this examination were discussed with the patient as well as a family.. She was advised to continue with MiraLAX daily and continue with a high-fiber diet. Recommend repeat colonoscopy in 10 years.
[2022-11-23 12:29] VITALS: BP 110/61; PULSE 69
== END ==
LOC: ORWHC2ENDO 10:36
PROVIDERS: ATTEND Internal Medicine Gastroenterology
DX: K57.30 Diverticulosis of large intestine without perforation or abscess without bleeding (principal); E78.5 Hyperlipidemia, unspecified; E03.9 Hypothyroidism, unspecified; Z79.899 Other long term (current) drug therapy; Z86.010 Personal history of colon polyps; Z87.891 Personal history of nicotine dependence
CPT/HCPCS: 45378; J2704

== ENCOUNTER → 2022-12-03 | Outpatient (CLI) | payer OTHER ==
--- NOTE | 2022-12-03 11:35 | US ---
EXAMINATION TYPE: US thyroid st tissue head/neck DATE OF EXAM: 12/03/2022 COMPARISON: US April 23 2022 CLINICAL INDICATION: Female, 57 years old with history of E04.1 THYROID NODULE; Thyroid nodules GLAND SIZE: Right Lobe: 4.4 x 1.2 x 1.5 cm Overall Parenchyma: homogenous Left Lobe: 4.0 x 1.2 x 1.1 cm Overall Parenchyma: homogeneous Isthmus Thickness: 0.2 cm NODULES RIGHT: # of nodules measured on right: nodules seen on previous study not seen on today's exam LEFT: # of nodules measured on left: 0 ISTHMUS: # of nodules measured in the isthmus: 0 Bilateral neck scanned, no evidence of lymphadenopathy. Homogeneous normal-sized thyroid without discrete nodule seen on today's study. IMPRESSION: As above
== END | disposition home or self-care (01) ==
LOC: RADUSWWP 09:35
PROVIDERS: ATTEND Otolaryngology
DX: E04.2 Nontoxic multinodular goiter (principal)
CPT/HCPCS: 76536

== ENCOUNTER → 2023-07-02 | Outpatient (CLI) | payer OTHER ==
--- NOTE | 2023-07-02 10:19 | MM ---
Reason for Exam: Screening (asymptomatic). Last mammogram was performed 17 year(s) and 2 month(s) ago. Patient History: Menarche at age 12. First Full-Term at age 21. Maternal grandmother had breast cancer. Risk Values: Xuan 5 year model risk: 1.2%. NCI Lifetime model risk: 6.9%. Prior Study Comparison: 03/03/2001 Bilateral Screening Mammogram, [facility]. 05/10/2006 Bilateral Diagnostic Mammogram, [facility]. Tissue Density: There are scattered fibroglandular densities. Findings: Analyzed By CAD. There is no suspicious group of microcalcifications or new suspicious mass. Overall Assessment: Negative, BI-RAD 1 Management: Screening Mammogram of both breasts in [address] [facility] will attempt to contact patient to return for supplemental views and ultrasound if indicated. Patient should continue monthly self-breast exams. A clinical breast exam by your physician is recommended on an annual basis. This exam should not preclude additional follow-up of suspicious palpable abnormalities. Note on Xuan scores and lifetime risk: 1. A Xuan score greater than 3% is considered moderate risk. If this is the case, consider specialist referral to assess eligibility for a risk reducing agent. 2. If overall lifetime risk for the development of breast cancer is 20% or higher, the patient may qualify for future screening with alternating mammogram and breast MRI. Electronically signed and approved by: Jean-Paul Nguyen DO
== END | disposition home or self-care (01) ==
LOC: RADMAMWWP 07:20
PROVIDERS: ATTEND Family Medicine
DX: Z12.31 Encounter for screening mammogram for malignant neoplasm of breast (principal); Z80.3 Family history of malignant neoplasm of breast
CPT/HCPCS: 77063; 77067

== ENCOUNTER 2023-09-04 09:42 | Observation (INO) | payer OTHER ==
[2023-09-04] MEDS ORDERED: SODIUM CHLORIDE 0.9% 1,000 ML IV STA (10:09)
[2023-09-04] MEDS ORDERED: ONDANSETRON 4 MG/2 ML VIAL IVP STA (10:09)
[2023-09-04] MEDS ORDERED: HYDROmorphone 0.5 MG/0.5 ML SYRINGE IVP STA ×2 (10:09→10:52)
[2023-09-04] MEDS ORDERED: SODIUM CHLORIDE 0.9% 500 ML 500 ML IV STA (10:09)
[2023-09-04 10:37] LABS: Basophils % (A) 1 %; Eosinophils # (A) 0.1 k/uL (0-0.7); Eosinophils % (A) 2 %; HCT 38.6 % (34.0-46.0); Lymphocytes # (A) 2.3 k/uL (1.0-4.8); Lymphocytes % (A) 39 %; MCH 32.8 pg (25.0-35.0); MCHC 33.7 g/dL (31.0-37.0); MCV 97.3 fL (80.0-100.0); Monocytes # (A) 0.3 k/uL (0-1.0); Monocytes % (A) 5 %; Neutrophils # (A) 3.1 k/uL (1.3-7.7); Neutrophils % (A) 52 %; Platelet Count 270 k/uL (150-450); RBC 3.97 m/uL (3.80-5.40); RDW 12.8 % (11.5-15.5)
[2023-09-04 10:43] LABS: ALT 24 U/L (4-34); AST 30 U/L (14-36); African American GFR (CKD) >90 (>60 ml/min/1.73 sqM); Albumin 4.3 g/dL (3.5-5.0); Alkaline Phosphatase 78 U/L (38-126); Amylase 68 U/L (30-110); Anion Gap 11 mmol/L; Blood Urea Nitrogen 19 mg/dL (7-17); Calcium 9.9 mg/dL (8.4-10.2); Carbon Dioxide 20 mmol/L (22-30); Chloride 107 mmol/L (98-107); Glucose 121 mg/dL (74-99); Lipase 49 U/L (23-300); Non-African American GFR(CKD) >90 (>60 ml/min/1.73 sqM); Potassium 4.1 mmol/L (3.5-5.1); Sodium 138 mmol/L (137-145); Total Bilirubin 1.3 mg/dL (0.2-1.3); Total Protein 7.5 g/dL (6.3-8.2)
[2023-09-04] MEDS ORDERED: SODIUM CHLORIDE 0.9% 1,000 ML IV ONE (10:50)
--- NOTE | 2023-09-04 11:43 | CT ---
EXAMINATION TYPE: CT abdomen pelvis w con DATE OF EXAM: 09/04/2023 COMPARISON: None INDICATION: abd pain DLP: 1034.2 mGycm, Automated exposure control for dose reduction was used. CONTRAST: 100 mL of Isovue 300. Study performed without Oral Contrast TECHNIQUE: Axial images were obtained from above the diaphragm to the pubic rami in the axial plane a t 5 mm thick sections. Reconstructed images are reviewed on the computer in the coronal plane. FINDINGS: Limited CT sections are obtained the lung bases. There is a 0.3 cm density along the major fissure o n the right. Series 201 image 4. There is a peripheral nodular density in the posterior lateral left lung base measuring 0.6 cm[address] Series [address] ABDOMEN: There is elevation of the left diaphragm. Small bowel around the left diaphragm. Liver: Normal Spleen: Normal Pancreas: Normal Adrenal glands: Normal Gallbladder: Normal Kidneys: No masses are evident. No hydronephrosis is present. There is a 3.4 cm cyst posterior late ral left mid kidney. There is a 2.0 cm cyst inferior medial right kidney. Delayed images were obtaine d through the kidneys, which remain unremarkable. Aorta: Minimal Vascular calcification is within the aorta. Inferior vena cava: Normal. CT PELVIS: Loops of bowel within the abdomen and pelvis are normal. Some fecal debris is within the colon. Th is study is without oral contrast limiting bowel evaluation. Appendix: Normal as visualized. Urinary bladder: Normal. Genitourinary structures: Uterus appears normal. Adnexa are normal. Osseous structures: No suspicious lytic or sclerotic lesions. Facet hypertrophy is within the lumbar spine. IMPRESSION: 1. Renal cysts.
--- NOTE | 2023-09-04 11:48 | ED ---
Abdominal Pain HPI - General Chief Complaint: Abdominal Pain Stated Complaint: Abdominal pain Time Seen by Provider: 09/04/23 09:55 Source: patient, RN notes reviewed Mode of arrival: ambulatory Limitations: no limitations - History of Present Illness Initial Comments: 58-year-old female presents emergency department with severe abdominal pain. Patient states it was sudden onset states that she has had nausea without vomiting she states that she has had a prior cholecystectomy and gastric sleeve. She states pain is intermittent mid abdomen nonradiating. States that this feels like someone squeezing, pressing on her abdomen. Patient states that the pain is causing her to feel short of breath. She denies chest pain denies back pain denies headache or dizziness no dysuria. - Related Data Home Medications Medication Instructions Recorded Confirmed Levothyroxine Sodium [Synthroid] 88 mcg PO DAILY 03/31/20 09/04/23 Biotin 5 mg PO DAILY 11/15/21 09/04/23 Cholecalciferol [Vitamin D3 (10 10 mcg PO DAILY 11/15/21 09/04/23 Mcg = 400 Iu)] Cyanocobalamin (Vitamin B-12) 5,000 mcg PO DAILY 11/15/21 09/04/23 [Vitamin B12] Allergies Allergy/AdvReac Type Severity Reaction Status Date / Time No Known Allergies Allergy Verified 09/04/23 11:06 Review of Systems ROS Statement: Those systems with pertinent positive or pertinent negative responses have been documented in the HPI. ROS Other: All systems not noted in ROS Statement are negative. Past Medical History Past Medical History: Thyroid Disorder Additional Past Medical History / Comment(s): cholecystitis History of Any Multi-Drug Resistant Organisms: None Reported Past Surgical History: Bariatric Surgery, Cholecystectomy Additional Past Surgical History / Comment(s): gastric sleeve. COLONOSCOPY Past Anesthesia/Blood Transfusion Reactions: No Reported Reaction Past Psychological History: No Psychological Hx Reported Smoking Status: Vaper Past Alcohol Use History: Occasional Past Drug Use History: None Reported - Past Family History Mother Family Medical History: Cancer General Exam Limitations: no limitations General appearance: alert, in distress Head exam: Present: atraumatic, normocephalic, normal inspection Eye exam: Present: normal appearance, PERRL, EOMI. Absent: scleral icterus, conjunctival injection, periorbital swelling ENT exam: Present: normal exam, normal oropharynx, mucous membranes moist Neck exam: Present: normal inspection, full ROM. Absent: tenderness, meningismus, lymphadenopathy Respiratory exam: Present: normal lung sounds bilaterally. Absent: respiratory distress, wheezes, rales, rhonchi, stridor Cardiovascular Exam: Present: regular rate, normal rhythm, normal heart sounds. Absent: systolic murmur, diastolic murmur, rubs, gallop, clicks GI/Abdominal exam: Present: soft, tenderness, guarding, normal bowel sounds. Absent: distended, rebound, rigid Back exam: Absent: CVA tenderness (R), CVA tenderness (L) Neurological exam: Present: alert Course Vital Signs 09/04/23 09/04/23 09/04/23 09:46 11:21 12:43 Temperature 98.2 F 97.6 F 97.5 F L Pulse Rate 64 56 L 63 Pulse Rate [ Pulse Oximetery ] Respiratory 36 H 18 17 Rate Blood Pressure 123/56 120/77 100/66 Blood Pressure [Right Arm] O2 Sat by Pulse 100 100 97 Oximetry 09/04/23 09/04/23 09/05/23 17:19 18:01 02:00 Temperature 97.6 F 98.0 F Pulse Rate 94 62 Pulse Rate [ 78 Pulse Oximetery ] Respiratory 20 19 19 Rate Blood Pressure 124/74 113/79 Blood Pressure 112/72 [Right Arm] O2 Sat by Pulse 100 96 Oximetry Medical Decision Making - Medical Decision Making Was pt. sent in by a medical professional or institution (, PA, SCHOOL INSPECTOR, urgent care, hospital, or [facility]...) When possible be specific @ -No Did you speak to anyone other than the patient for history (EMS, parent, family, police, friend...)? What history was obtained from this source @ -No Did you review nursing and triage notes (agree or disagree)? Why? @ -I reviewed and agree with nursing and triage notes Were old charts reviewed (outside hosp., previous admission, EMS record, old EKG, old radiological studies, urgent care reports/EKG's, [facility] records)? Report findings @ -No old charts were reviewed Differential Diagnosis (chest pain, altered mental status, abdominal pain women, abdominal pain men, vaginal bleeding, weakness, fever, dyspnea, syncope, headache, dizziness, GI bleed, back pain, seizure, CVA, palpatations, mental health, musculoskeletal)? @ -[Differential Abdominal Pain Women: Appendicitis, Cholecystitis, diverticulosis, ischemic bowel, pancreatitis, hepatitis, UTI, gastroenteritis, AAA, incarcerated hernia, bowel obstruction, constipation, inflammatory bowel, hepatitis, peptic ulcer disease, splenic infarction, perforated viscus, vulvitis, ovarian torsion, PID, kidney stone, placenta abruption, this is not meant to be an all-inclusive list EKG interpreted by me (3pts min.). @ -As above X-rays interpreted by me (1pt min.). @ -None done CT interpreted by me (1pt min.). @ -[Ct abdomen and pelvis showing evidence of renal cyst no other acute process U/S interpreted by me (1pt. min.). @ -None done What testing was considered but not performed or refused? (CT, X-rays, U/S, labs)? Why? @ -None What meds were considered but not given or refused? Why? @ -None Did you discuss the management of the patient with other professionals (professionals i.e. , PA, SCHOOL INSPECTOR, lab, RT, psych nurse, social service technician, clinical trial assistant, teacher, infantry officer, welfare case worker)? Give summary @ -[Dr. Barbozaania secondary to intractable abdominal pain, severe pain out of proportion without CT findings and significant lactic acidosis. Was smoking cessation discussed for >3mins.? @ -No Was critical care preformed (if so, how long)? @ -No Were there social determinants of health that impacted care today? How? (Homelessness, low income, unemployed, alcoholism, drug addiction, transportation, low edu. Level, literacy, decrease access to med. care, care home, rehab)? @ -No Was there de-escalation of care discussed even if they declined (Discuss DNR or withdrawal of care, Hospice)? DNR status @ -No What co-morbidities impacted this encounter? (DM, HTN, Smoking, COPD, CAD, Cancer, CVA, ARF, Chemo, Hep., AIDS, mental health diagnosis, sleep apnea, morbid obesity)? @ -None Was patient admitted / discharged? Hospital course, mention meds given and route, prescriptions, significant lab abnormalities, going to OR and other pertinent info. @ -Admitted patient has severe abdominal pain severe lactic acidosis concerning for ischemic bowel. I did discuss case with on-call surgeon recommended CT with oral contrast. Patient will be admitted for repeat CT, monitoring, analgesics. Undiagnosed new problem with uncertain prognosis? @ -No Drug Therapy requiring intensive monitoring for toxicity (Heparin, Nitro, Insulin, Cardizem)? @ -No Were any procedures done? @ -No Diagnosis/symptom? @ -Abdominal pain, lactic acidosis Acute, or Chronic, or Acute on Chronic? @ -[acute Uncomplicated (without systemic symptoms) or Complicated (systemic symptoms)? @ -Uncomplicated Side effects of treatment? @ -[No Exacerbation, Progression, or Severe Exacerbation? @ -No Poses a threat to life or bodily function? How? (Chest pain, [place], [place], pneumonia, PE, COPD, DKA, ARF, appy, cholecystitis, CVA, Diverticulitis, Homicidal, Suicidal, threat to staff... and all critical care pts) @ -No - Lab Data Result diagrams: 09/04/23 10:11 09/04/23 10:11 Lab Results 09/04/23 09/04/23 09/04/23 Range/Units 10:11 10:11 10:11 WBC 6.0 (3.8-10.6) k/uL RBC 3.97 (3.80-5.40) m/uL Hgb 13.0 (11.4-16.0) gm/dL Hct 38.6 (34.0-46.0) % MCV 97.3 (80.0-100.0) fL MCH 32.8 (25.0-35.0) pg MCHC 33.7 (31.0-37.0) g/dL RDW 12.8 (11.5-15.5) % Plt Count 270 (150-450) k/uL MPV 8.0 Neutrophils % 52 % Lymphocytes % 39 % Monocytes % 5 % Eosinophils % 2 % Basophils % 1 % Neutrophils # 3.1 (1.3-7.7) k/uL Lymphocytes # 2.3 (1.0-4.8) k/uL Monocytes # 0.3 (0-1.0) k/uL Eosinophils # 0.1 (0-0.7) k/uL Basophils # 0.0 (0-0.2) k/uL Sodium 138 (137-145) mmol/L Potassium 4.1 (3.5-5.1) mmol/L Chloride 107 (98-107) mmol/L Carbon Dioxide 20 L (22-30) mmol/L Anion Gap 11 mmol/L BUN 19 H (7-17) mg/dL Creatinine 0.59 (0.52-1.04) mg/dL Est GFR (CKD-EPI)AfAm >90 (>60 ml/min/1.73 sqM) Est GFR (CKD-EPI)NonAf >90 (>60 ml/min/1.73 sqM) Glucose 121 H (74-99) mg/dL Lactic Ac Sepsis Rflx Plasma Lactic Acid Moiz (0.7-2.0) mmol/L Calcium 9.9 (8.4-10.2) mg/dL Total Bilirubin 1.3 (0.2-1.3) mg/dL AST 30 (14-36) U/L ALT 24 (4-34) U/L Alkaline Phosphatase 78 (38-126) U/L Troponin I (0.000-0.034) ng/mL Total Protein 7.5 (6.3-8.2) g/dL Albumin 4.3 (3.5-5.0) g/dL Amylase 68 (30-110) U/L Lipase 49 (23-300) U/L Urine Color Colorless Urine Appearance Clear (Clear) Urine pH 8.0 (5.0-8.0) Ur Specific Lambert 1.036 H (1.001-1.035) Urine Protein Negative (Negative) Urine Glucose (UA) Negative (Negative) Urine Ketones Negative (Negative) Urine Blood Negative (Negative) Urine Nitrite Negative (Negative) Urine Bilirubin Negative (Negative) Urine Urobilinogen <2.0 (<2.0) mg/dL Ur Leukocyte Esterase Negative (Negative) 09/04/23 09/04/23 09/04/23 Range/Units 10:11 10:11 10:50 WBC (3.8-10.6) k/uL RBC (3.80-5.40) m/uL Hgb (11.4-16.0) gm/dL Hct (34.0-46.0) % MCV (80.0-100.0) fL MCH (25.0-35.0) pg MCHC (31.0-37.0) g/dL RDW (11.5-15.5) % Plt Count (150-450) k/uL MPV Neutrophils % % Lymphocytes % % Monocytes % % Eosinophils % % Basophils % % Neutrophils # (1.3-7.7) k/uL Lymphocytes # (1.0-4.8) k/uL Monocytes # (0-1.0) k/uL Eosinophils # (0-0.7) k/uL Basophils # (0-0.2) k/uL Sodium (137-145) mmol/L Potassium (3.5-5.1) mmol/L Chloride (98-107) mmol/L Carbon Dioxide (22-30) mmol/L Anion Gap mmol/L BUN (7-17) mg/dL Creatinine (0.52-1.04) mg/dL Est GFR (CKD-EPI)AfAm (>60 ml/min/1.73 sqM) Est GFR (CKD-EPI)NonAf (>60 ml/min/1.73 sqM) Glucose (74-99) mg/dL Lactic Ac Sepsis Rflx Y Plasma Lactic Acid Moiz 5.6 H* (0.7-2.0) mmol/L Calcium (8.4-10.2) mg/dL Total Bilirubin (0.2-1.3) mg/dL AST (14-36) U/L ALT (4-34) U/L Alkaline Phosphatase (38-126) U/L Troponin I <0.012 (0.000-0.034) ng/mL Total Protein (6.3-8.2) g/dL Albumin (3.5-5.0) g/dL Amylase (30-110) U/L Lipase (23-300) U/L Urine Color Urine Appearance (Clear) Urine pH (5.0-8.0) Ur Specific Lambert (1.001-1.035) Urine Protein (Negative) Urine Glucose (UA) (Negative) Urine Ketones (Negative) Urine Blood (Negative) Urine Nitrite (Negative) Urine Bilirubin (Negative) Urine Urobilinogen (<2.0) mg/dL Ur Leukocyte Esterase (Negative) - EKG Data -: EKG Interpreted by Me EKG Comments: EKG performed at 10: 03 sinus rhythm with a rate of 65 QRS 77 QT/QTc 418/430 Disposition Clinical Impression: Intractable abdominal pain, Lactic acidosis Disposition: [facility]MITTED [facility] Condition: Serious Time of Disposition: 13:02
[2023-09-04 12:43] LABS: Appearance,Urine Clear (Clear); Bilirubin,Urine Negative (Negative); Blood,Urine Negative (Negative); Color,Urine Colorless; Glucose,Urine (UA) Negative (Negative); Ketones,Urine Negative (Negative); Leukocyte Esterase,Urine Negative (Negative); Nitrite,Urine Negative (Negative); Protein,Urine Negative (Negative); Specific Gravity,Urine 1.036 (1.001-1.035); Urobilinogen,Urine <2.0 mg/dL (<2.0)
[2023-09-04] MEDS ORDERED: PIPERACILLIN-TAZOBACTAM 3.375 GM in SODIUM CHLORIDE 0.9% 100 ML IVPB STA (12:54)
[2023-09-04] MEDS ORDERED: NALOXONE 0.4 MG/ML 1 ML VIAL IV PRN (13:02)
[2023-09-04] MEDS: SODIUM CHLORIDE 0.9% 1,000 ML IV SCH (13:05)
[2023-09-04] MEDS: HYDROmorphone 1 MG/ML 1 ML SYRINGE IVP PRN ×2 (13:36→17:54)
[2023-09-04] MEDS: ONDANSETRON 4 MG/2 ML VIAL IVP PRN ×2 (13:50→19:47)
--- NOTE | 2023-09-04 14:12 | P.GSHP ---
History of Present Illness H&P Date: 09/04/23 CHIEF COMPLAINT: Abdominal pain HISTORY OF PRESENT ILLNESS: This is a 58-year-old female who presented with abdominal pain that started this morning. She reports pain is sharp and severe. The pain is located in the mid abdomen. She has been having nausea with no vomiting. No fever. She reports normal bowel movement. She reports symptoms feel similar to when she needed her gallbladder out. Patient had history of cholecystectomy in March 2020. Also has a history of gastric sleeve in 2019. She did have elevated lactic acid level on admission. She has received 2.5 L fluid bolus. Initial CT scan with IV contrast just reports renal cysts bilaterally. Patient denies any prior history of peptic ulcer disease. Denies any cardiac history. Last EGD was prior to her sleeve gastrectomy. PAST MEDICAL HISTORY: Hypothyroidism PAST SURGICAL HISTORY: Sleeve gastrectomy, cholecystectomy MEDICATIONS: See below ALLERGIES: See below SOCIAL HISTORY: No illicit drug use. Vaper REVIEW OF SYSTEMS: CONSTITUTIONAL: Denies fever or chills. HEENT: Denies blurred vision, vision changes, or eye pain. Denies hemoptysis CARDIOVASCULAR: Denies chest pain or pressure. RESPIRATORY: No shortness of breath. GASTROINTESTINAL: See HPI for pertinent findings HEMATOLOGIC: Denies bleeding disorders. GENITOURINARY: Denies any blood in urine or increased urinary frequency. SKIN: Denies pruitis. Denies rash. PHYSICAL EXAM: VITAL SIGNS: Reviewed GENERAL: Well-developed in no acute distress. HEENT: No sclera icterus. Extraocular movements grossly intact. Moist buccal mucosa. Head is atraumatic, normocephalic. No nasal drainage. ABDOMEN: Soft. Nondistended. Tenderness with palpation to upper mid mid abdomen above umbilicus, guarding present NEUROLOGIC: Alert and oriented. Cranial nerves II through XII grossly intact. LABORATORY DATA: WC 6.0 Hgb 13.0 platelets 270 Sodium is 138 potassium 4.1 creatinine 0.59 Lactic acid 5.6 down to 0.9 Total bilirubin 1.3 AST 30 ALT 24 alk phos 78 lipase 49 Troponin negative Urinalysis negative for infection IMAGING: CT scan abdomen pelvis with IV contrast reports renal cysts ASSESSMENT: 1. Upper mid abdominal pain with nausea 2. Lactic acidosis 3. History of cholecystectomy and sleeve gastrectomy PLAN: -CT scan abdomen pelvis with oral contrast ordered -Continue IV fluids -Continue antibiotics -Continue antiemetics -Continue pain medication as needed Physician Chamber Magistrate note has been reviewed by physician. Signing provider agrees with the documented findings, assessment, and plan of care. Past Medical History Past Medical History: Thyroid Disorder Additional Past Medical History / Comment(s): cholecystitis History of Any Multi-Drug Resistant Organisms: None Reported Past Surgical History: Bariatric Surgery, Cholecystectomy Additional Past Surgical History / Comment(s): gastric sleeve. COLONOSCOPY Past Anesthesia/Blood Transfusion Reactions: No Reported Reaction Past Psychological History: No Psychological Hx Reported Smoking Status: Vaper Past Alcohol Use History: Occasional Past Drug Use History: None Reported - Past Family History Mother Family Medical History: Cancer Medications and Allergies Home Medications Medication Instructions Recorded Confirmed Type Levothyroxine Sodium [Synthroid] 88 mcg PO DAILY 03/31/20 09/04/23 History Biotin 5 mg PO DAILY 11/15/21 09/04/23 History Cholecalciferol [Vitamin D3 (10 10 mcg PO DAILY 11/15/21 09/04/23 History Mcg = 400 Iu)] Cyanocobalamin (Vitamin B-12) 5,000 mcg PO DAILY 11/15/21 09/04/23 History [Vitamin B12] Allergies Allergy/AdvReac Type Severity Reaction Status Date / Time No Known Allergies Allergy Verified 09/04/23 11:06 Surgical - Exam Vital Signs Temp Pulse Resp BP Pulse Ox 98.2 F 64 36 H 123/56 100 09/04/23 09:46 09/04/23 09:46 09/04/23 09:46 09/04/23 09:46 09/04/23 09:46 Results - Labs 09/04/23 10:11 09/04/23 10:11 Abnormal Lab Results - Last 24 Hours (Table) 09/04/23 09/04/23 09/04/23 Range/Units 10:11 10:11 10:11 Carbon Dioxide 20 L (22-30) mmol/L BUN 19 H (7-17) mg/dL Glucose 121 H (74-99) mg/dL Plasma Lactic Acid Moiz 5.6 H* (0.7-2.0) mmol/L Ur Specific [place] 1.036 H (1.001-1.035) Diabetes panel 09/04/23 Range/Units 10:11 Sodium 138 (137-145) mmol/L Potassium 4.1 (3.5-5.1) mmol/L Chloride 107 (98-107) mmol/L Carbon Dioxide 20 L (22-30) mmol/L BUN 19 H (7-17) mg/dL Creatinine 0.59 (0.52-1.04) mg/dL Glucose 121 H (74-99) mg/dL Calcium 9.9 (8.4-10.2) mg/dL AST 30 (14-36) U/L ALT 24 (4-34) U/L Alkaline Phosphatase 78 (38-126) U/L Total Protein 7.5 (6.3-8.2) g/dL Albumin 4.3 (3.5-5.0) g/dL Calcium panel 09/04/23 Range/Units 10:11 Calcium 9.9 (8.4-10.2) mg/dL Albumin 4.3 (3.5-5.0) g/dL Pituitary panel 09/04/23 Range/Units 10:11 Sodium 138 (137-145) mmol/L Potassium 4.1 (3.5-5.1) mmol/L Chloride 107 (98-107) mmol/L Carbon Dioxide 20 L (22-30) mmol/L BUN 19 H (7-17) mg/dL Creatinine 0.59 (0.52-1.04) mg/dL Glucose 121 H (74-99) mg/dL Calcium 9.9 (8.4-10.2) mg/dL Adrenal panel 09/04/23 Range/Units 10:11 Sodium 138 (137-145) mmol/L Potassium 4.1 (3.5-5.1) mmol/L Chloride 107 (98-107) mmol/L Carbon Dioxide 20 L (22-30) mmol/L BUN 19 H (7-17) mg/dL Creatinine 0.59 (0.52-1.04) mg/dL Glucose 121 H (74-99) mg/dL Calcium 9.9 (8.4-10.2) mg/dL Total Bilirubin 1.3 (0.2-1.3) mg/dL AST 30 (14-36) U/L ALT 24 (4-34) U/L Alkaline Phosphatase 78 (38-126) U/L Total Protein 7.5 (6.3-8.2) g/dL Albumin 4.3 (3.5-5.0) g/dL
[2023-09-04] MEDS ORDERED: METOCLOPRAMIDE 5 MG/ML 2 ML VIAL IVP STA (14:26)
[2023-09-04] MEDS: PANTOPRAZOLE 40 MG/10 ML VIAL IVP SCH (14:27)
[2023-09-04] MEDS: HYDROmorphone 0.5 MG/0.5 ML SYRINGE IVP PRN ×2 (14:28→19:47)
[2023-09-04] MEDS: METOCLOPRAMIDE 5 MG/ML 2 ML VIAL IVP PRN (17:51)
[2023-09-04] MEDS: PIPERACILLIN-TAZOBACTAM 3.375 GM in SODIUM CHLORIDE 0.9% 100 ML IVPB SCH (20:01)
[2023-09-05] MEDS: SODIUM CHLORIDE 0.9% 1,000 ML IV SCH ×2 (03:19→15:54)
[2023-09-05] MEDS: PIPERACILLIN-TAZOBACTAM 3.375 GM in SODIUM CHLORIDE 0.9% 100 ML IVPB SCH ×3 (04:28→20:08)
[2023-09-05] MEDS: ONDANSETRON 4 MG/2 ML VIAL IVP PRN ×3 (04:29→22:09)
[2023-09-05] MEDS: IOPAMIDOL CONTRAST (ORAL USE) VIAL PO PRN ×2 (09:33→10:35)
[2023-09-05] MEDS: PANTOPRAZOLE 40 MG/10 ML VIAL IVP SCH (09:33)
[2023-09-05] MEDS: METOCLOPRAMIDE 5 MG/ML 2 ML VIAL IVP PRN ×2 (10:04→19:16)
--- NOTE | 2023-09-05 11:45 | CT ---
EXAMINATION TYPE: CT abdomen pelvis wo con DATE OF EXAM: 09/05/2023 COMPARISON: 09/04/2023 INDICATION: lactic acidosis DLP: 628.4 mGycm, Automated exposure control for dose reduction was used. CONTRAST: 0 mL of Isovue 300. Study performed with Oral Contrast. Patient was unable to keep oral contrast down for the exam however. TECHNIQUE: Axial images were obtained from above the diaphragm to the pubic rami in the axial plane a t 5 mm thick sections. Reconstructed images are reviewed on the computer in the coronal plane. FINDINGS: Limited CT sections are obtained the lung bases. The lung bases are clear. CT ABDOMEN: There is some oral contrast within the stomach and proximal duodenum. A little contrast p asses beyond this level. No suspicious focal stenosis is evident Liver: Normal Spleen: Normal Pancreas: Normal Adrenal glands: The adrenal glands are normal. Gallbladder: Not identified Kidneys: No masses are evident. No hydronephrosis is present. There is a 3.2 cm cyst posterior late ral left mid kidney. Medial and inferior 2.0 centimeters cyst right kidney is present no renal stone s are identified. Aorta: Vascular calcification is within the aorta. Inferior vena cava: Normal. CT PELVIS: Loops of bowel within the abdomen and pelvis are normal. No focal zone of transition evident. No abdulaziz picious dilated loops of bowel are evident. Majority of loops of bowel which are incompletely diste nded or lack oral contrast have limited evaluation. No pneumatosis intestinalis evident. No obvious w all thickening is evident although evaluation for wall thickening is difficult due to lack of oral co ntrast. Appendix: Appendix is less well visualized on this examination. No dilated appendix or adjacent infla mmatory changes are evident. Urinary bladder: Normal. Genitourinary structures: Uterus and adnexa appear unremarkable. Osseous structures: No suspicious lytic or sclerotic lesions. Facet degenerative changes are within t he lumbar spine. IMPRESSION: 1. Cortical renal cysts present bilaterally. 2. No significant interval change from prior exam
--- NOTE | 2023-09-05 13:47 | P.PN ---
Subjective Progress Note Date: 09/05/23 CHIEF COMPLAINT: abdominal pain HISTORY OF PRESENT ILLNESS: Patient reports she is feeling better today. She did have a small amount of vomiting this morning. However pain has resolved. She was able to have the CT scan abdomen pelvis with oral contrast this morning. She did not tolerate the contrast last night. CT results show cortical renal cyst present bilaterally no significant interval change from prior exam. Afebrile. PHYSICAL EXAM: VITAL SIGNS: Reviewed. GENERAL: Well-developed in no acute distress. HEENT: No sclera icterus. Extraocular movements grossly intact. Moist buccal mucosa. Head is atraumatic, normocephalic. ABDOMEN: Soft. Nondistended. Nontender. NEUROLOGIC: Alert and oriented. Cranial nerves II through XII grossly intact. ASSESSMENT: 1. Upper mid abdominal pain with nausea improved 2. Lactic acidosis improved 3. Dehydration 4. History of cholecystectomy and sleeve gastrectomy PLAN: -Advance diet to clear liquids -Continue to monitor -Continue IV fluids -Continue antibiotics -Continue antiemetics -Continue pain medication as needed Physician Humanities Division Chair note has been reviewed by physician. Signing provider agrees with the documented findings, assessment, and plan of care. Objective - Vital Signs Vital signs: Vital Signs Temp 97.8 F 09/05/23 07:40 Pulse 66 09/05/23 07:40 Resp 16 09/05/23 07:40 BP 117/55 09/05/23 07:40 Pulse Ox 98 09/05/23 07:40 FiO2 Intake & Output 09/04/23 09/05/23 09/05/23 18:59 06:59 18:59 Output Total 300 Balance -300 Weight 77.111 kg Output: Emesis 300 - Labs CBC & Chem 7: 09/04/23 10:11 09/04/23 10:11 Labs: Abnormal Lab Results - Last 24 Hours (Table) 09/04/23 Range/Units 10:11 Ur Specific [place] 1.036 H (1.001-1.035)
[2023-09-05] MEDS: HYDROmorphone 1 MG/ML 1 ML SYRINGE IVP PRN (22:09)
[2023-09-06 02:06] VITALS: RESP 16
[2023-09-06] MEDS: PIPERACILLIN-TAZOBACTAM 3.375 GM in SODIUM CHLORIDE 0.9% 100 ML IVPB SCH (04:18)
[2023-09-06] MEDS: PANTOPRAZOLE 40 MG/10 ML VIAL IVP SCH (08:46)
[2023-09-06 09:19] LABS: Basophils # (A) 0.1 k/uL (0-0.2); Basophils % (A) 1 %; Eosinophils # (A) 0.1 k/uL (0-0.7); Eosinophils % (A) 1 %; HCT 34.1 % (34.0-46.0); HGB 11.4 gm/dL (11.4-16.0); Lymphocytes % (A) 25 %; MCH 32.8 pg (25.0-35.0); MCHC 33.3 g/dL (31.0-37.0); MCV 98.4 fL (80.0-100.0); Mean Platelet Volume 7.9; Monocytes # (A) 0.5 k/uL (0-1.0); Monocytes % (A) 6 %; Neutrophils # (A) 5.3 k/uL (1.3-7.7); Neutrophils % (A) 66 %; Platelet Count 207 k/uL (150-450); RBC 3.47 m/uL (3.80-5.40); RDW 12.8 % (11.5-15.5)
[2023-09-06] MEDS ORDERED: LEVOTHYROXINE 88 MCG TAB PO SCH (12:30)
[2023-09-06 12:41] VITALS: BP 109/67; PULSE 73; TEMP 98.1
[2023-09-06] MEDS: SODIUM CHLORIDE 0.9% 1,000 ML IV SCH (12:53)
--- NOTE | 2023-09-06 13:03 | P.DS ---
Providers Date of admission: 09/04/23 12:51 Expected date of discharge: 09/06/23 Attending physician: Dirk Menjivar Primary care physician: Marvel Ortiz [facility] Course: Discharge diagnosis 1. Possible viral gastroenteritis 2. Upper mid abdominal pain resolved 3. Lactic acidosis improved 4. Dehydration 5. History of cholecystectomy and sleeve gastrectomy Hospital course This is a 58-year-old female who presented with abdominal pain with nausea and vomiting. Patient had CT scan of the abdomen pelvis with no acute process to contribute to her symptoms. It is felt that patient had a viral gastroenteritis causing dehydration. Patient symptoms did improve with IV fluids. She is tolerating diet. She reports her pain is resolved. She has been up and ambulating. She is stable for discharge. Please refer to chart for any further details. Physician Pure Culture Operator note has been reviewed by physician. Signing provider agrees with the documented findings, assessment, and plan of care. Patient Condition at Discharge: Stable Plan - Discharge Summary Discharge Rx Participant: Yes New Discharge Prescriptions: Continue Levothyroxine Sodium [Synthroid] 88 mcg PO DAILY Cyanocobalamin (Vitamin B-12) [Vitamin B-12] 5,000 mcg PO DAILY Biotin 5 mg PO DAILY Cholecalciferol [Vitamin D3 (10 Mcg = 400 Iu)] 10 mcg PO DAILY Discharge Medication List Levothyroxine Sodium [Synthroid] 88 mcg PO DAILY 03/31/20 [History] Biotin 5 mg PO DAILY 11/15/21 [History] Cholecalciferol [Vitamin D3 (10 Mcg = 400 Iu)] 10 mcg PO DAILY 11/15/21 [History] Cyanocobalamin (Vitamin B-12) [Vitamin B-12] 5,000 mcg PO DAILY 11/15/21 [History] Follow up Appointment(s)/Referral(s): Marvel Ortiz MD [Primary Care Provider] - 1-2 days Dirk Menjivar MD [STAFF PHYSICIAN] - 1 Week Activity/Diet/Wound Care/Special Instructions: Drink plenty of fluids Advance diet as tolerated Discharge Disposition: HOME SELF-CARE
== END 2023-09-06 13:50 | disposition home or self-care (01) ==
LOC: EC 09:42 → 6NMEDSUR 12:51 → 5NMEDONC 09-05 04:46
PROVIDERS: ADMIT Surgery; ATTEND Surgery
DX: R10.9 Unspecified abdominal pain (principal); E87.20 Acidosis, unspecified; E86.0 Dehydration; R11.2 Nausea with vomiting, unspecified; R06.02 Shortness of breath; N28.1 Cyst of kidney, acquired; E03.9 Hypothyroidism, unspecified; F17.290 Nicotine dependence, other tobacco product, uncomplicated; Z79.890 Hormone replacement therapy; Z90.49 Acquired absence of other specified parts of digestive tract; Z98.84 Bariatric surgery status; Z98.890 Other specified postprocedural states
CPT/HCPCS: 96376 ×4; 96366 ×4; 96361 ×2; 96365; 96375; 99285; 36415; 93005; 80053; 82150; 83605; 83690; 84484; 85025 ×2; 81003; 74176; 74177; G0378 ×4; J2543 ×3; J2765 ×2; J2405 ×2; J1170 ×3; C9113 ×3; Q9967

== ENCOUNTER → 2023-12-04 | Outpatient (CLI) | payer OTHER ==
--- NOTE | 2023-12-04 16:19 | US ---
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 Correlate cl inically. 2017 ACR TI-RADS LEVEL: TR-RADS 1 - BENIGN: No FNA *Highest TI-RADS level nodule reported
== END | disposition home or self-care (01) ==
LOC: RADUSWWP 15:52
PROVIDERS: ATTEND Otolaryngology
DX: E03.1 Congenital hypothyroidism without goiter (principal)
CPT/HCPCS: 76536

== ENCOUNTER 2024-05-29 16:30 | Inpatient (IN) | payer OTHER ==
[2024-05-29] MEDS: HYDROmorphone 1 MG/ML 1 ML SYRINGE IVP STA (17:19)
[2024-05-29] MEDS: SODIUM CHLORIDE 0.9% 1,000 ML IV STA (17:21)
[2024-05-29] MEDS: ONDANSETRON 4 MG/2 ML VIAL IVP STA (17:22)
[2024-05-29] MEDS: PANTOPRAZOLE 40 MG/10 ML VIAL IVP STA (17:22)
[2024-05-29 17:31] LABS: Basophils % (A) 0 %; Eosinophils # (A) 0.1 k/uL (0-0.7); Eosinophils % (A) 1 %; HGB 13.8 gm/dL (11.4-16.0); Lymphocytes # (A) 1.7 k/uL (1.0-4.8); Lymphocytes % (A) 18 %; MCH 32.4 pg (25.0-35.0); MCHC 34.6 g/dL (31.0-37.0); MCV 93.9 fL (80.0-100.0); Mean Platelet Volume 8.7; Monocytes # (A) 0.5 k/uL (0-1.0); Monocytes % (A) 6 %; Neutrophils # (A) 7.3 k/uL (1.3-7.7); Neutrophils % (A) 76 %; RBC 4.26 m/uL (3.80-5.40); RDW 12.5 % (11.5-15.5); WBC 9.7 k/uL (3.8-10.6)
--- NOTE | 2024-05-29 17:31 | ED ---
Abdominal Pain HPI - General Chief Complaint: Abdominal Pain Stated Complaint: Abd Pain Time Seen by Provider: 05/29/24 16:47 Source: patient, EMS Mode of arrival: EMS Limitations: no limitations - History of Present Illness Initial Comments: Patient is a 59-year-old female the past medical history of prior gastric sleeve, prior cholecystectomy presenting today for sudden onset abdominal pain. Patient was eating carrots and hummus when she began experiencing right sided abdominal pain. Denies nausea, vomiting, diarrhea black or bloody stools. Murtaza es fevers. Denies chills. Denies chest pain or difficulty in breathing. No pain medications prior to arrival. Denies dysuria or hematuria. - Related Data Home Medications Medication Instructions Recorded Confirmed Levothyroxine Sodium [Synthroid] 88 mcg PO DAILY 03/31/20 05/29/24 Allergies Allergy/AdvReac Type Severity Reaction Status Date / Time No Known Allergies Allergy Verified 05/29/24 20:26 Review of Systems ROS Statement: Those systems with pertinent positive or pertinent negative responses have been documented in the HPI. ROS Other: All systems not noted in ROS Statement are negative. Constitutional: Denies: fever, chills Respiratory: Denies: dyspnea Cardiovascular: Denies: chest pain Gastrointestinal: Reports: abdominal pain. Denies: nausea, vomiting, diarrhea Past Medical History Past Medical History: Thyroid Disorder Additional Past Medical History / Comment(s): cholecystitis History of Any Multi-Drug Resistant Organisms: None Reported Past Surgical History: Bariatric Surgery, Cholecystectomy Additional Past Surgical History / Comment(s): gastric sleeve. COLONOSCOPY Past Anesthesia/Blood Transfusion Reactions: No Reported Reaction Past Psychological History: No Psychological Hx Reported Smoking Status: Vaper Past Alcohol Use History: Occasional Past Drug Use History: None Reported - Past Family History Mother Family Medical History: Cancer Additional Family Medical History / Comment(s): gastric cancer, Brother(s) Family Medical History: Diabetes Mellitus General Exam - General Exam Comments Initial Comments: PE: CONSTITUTIONAL: Ill-appearing, shaking, nontoxic-appearing, uncomfortable SKIN: Warm, dry, no jaundice, hives or petechiae, no rashes EYES: Pupils are equally round, extraocular movements intact without nystagmus, clear conjunctiva, non-icteric sclera HENT: Normocephalic, atraumatic, moist mucus membranes, oropharynx clear without exudates NECK: , Full range of motion, normal appearance PULMONARY: Clear to auscultation without wheezes, rhonchi, or rales, normal excursion, no accessory muscle use and no stridor CARDIOVASCULAR: Regular rate, rhythm, normal S1 and S2. No appreciated murmurs, rubs or gallops. Strong radial pulses with intact distal perfusion. No lower extremity edema GASTROINTESTINAL: Soft, active bowel sounds throughout, diffusely tender but predominantly in the right lower quadrant non-distended, no palpable masses, no rebound; guarding present with palpation of the abdomen. No hepatosplenomegaly GENITOURINARY: MUSCULOSKELETAL: Extremities have no gross deformity, no edema, redness, or swelling. No calf swelling NEUROLOGIC:_a/o x 3, GCS 15, normal mentation and speech. Moves all extremities x 4 without motor or sensory deficit PSYCHIATRIC:_normal mood and affect, thought process is clear and linear Limitations: no limitations Course Vital Signs 05/29/24 05/29/24 05/29/24 16:41 18:09 20:08 Temperature 97.5 F L 98.4 F Pulse Rate 65 68 66 Respiratory 18 16 16 Rate Blood Pressure 113/73 119/68 107/71 O2 Sat by Pulse 95 99 Oximetry Medical Decision Making - Medical Decision Making Was pt. sent in by a medical professional or institution (, PA, TESTING AND REGULATING CHIEF, urgent care, hospital, or halfway...) When possible be specific @ -No Did you speak to anyone other than the patient for history (EMS, parent, family, police, friend...)? What history was obtained from this source @ -No Did you review nursing and triage notes (agree or disagree)? Why? @ -I reviewed and agree with nursing and triage notes Were old charts reviewed (outside hosp., previous admission, EMS record, old EKG, old radiological studies, urgent care reports/EKG's, halfway records)? Report findings @ -Records reviewed-patient was admitted in August of this year for similar symptoms and ultimately diagnosed with viral gastroenteritis, CT done on 09/05/2023 showed no acute process did note renal cysts Differential Diagnosis (chest pain, altered mental status, abdominal pain women, abdominal pain men, vaginal bleeding, weakness, fever, dyspnea, syncope, headache, dizziness, GI bleed, back pain, seizure, CVA, palpatations, mental health, musculoskeletal)? @Differential Abdominal Pain Women: Appendicitis, choledocholithiasis, diverticulosis, ischemic bowel, pancreatitis, hepatitis, UTI, gastroenteritis, AAA, incarcerated hernia, bowel obstruction, constipation, inflammatory bowel, hepatitis, peptic ulcer disease, splenic infarction, perforated viscus, , kidney stone,this is not meant to be an all- inclusive list EKG interpreted by me (3pts min.). @ -As above X-rays interpreted by me (1pt min.). @ -None done CT interpreted by me (1pt min.). @ -Fat stranding around pancreas noted, no free air or free fluid to indicate perforation no obvious transition point to indicate bowel obstruction U/S interpreted by me (1pt. min.). @ -None done What testing was considered but not performed or refused? (CT, X-rays, U/S, labs)? Why? @ -None What meds were considered but not given or refused? Why? @ -None Did you discuss the management of the patient with other professionals ( professionals i.e. , PA, TESTING AND REGULATING CHIEF, lab, RT, psych nurse, social service worker, loan servicing representative, teacher, chief medical officer, rifle case repairer)? Give summary @ -No Was smoking cessation discussed for >3mins.? @ -No Was critical care preformed (if so, how long)? @ -No Were there social determinants of health that impacted care today? How? (Homelessness, low income, unemployed, alcoholism, drug addiction, transportation, low edu. Level, literacy, decrease access to med. care, halfway, rehab)? @ -No Was there de-escalation of care discussed even if they declined (Discuss DNR or withdrawal of care, Hospice)? @ -No What co-morbidities impacted this encounter? (DM, HTN, Smoking, COPD, CAD, Cancer, CVA, ARF, Chemo, Hep., AIDS, mental health diagnosis, sleep apnea, morbid obesity)? @ -None Was patient admitted / discharged? Hospital course, mention meds given and route, prescriptions, significant lab abnormalities, going to OR and other pertinent info. @ -Hospital course admission- Patient seen and assessed on arrival. 59-year-old female, shivering, uncomfortable appearing. Exam shows soft abdomen but diffusely tender, particularly in right side of abdomen. Negative hammond's sign. +Active bowel wounds. LCTAB, strong radial pulses. Labs, imaging as well as pain control and IV fluids ordered prior to my assessment by other ED physician. I reviewed these and agree with plan for CT abdomen pelvis, IV fluids, Dilaudid, Protonix, CBC, CMP, amylase, lipase. Pt agreeable with POC. I was called by RN as patient's RR decreased to 8 shortly after recieving diluadid. On my assessment patient is awake and alert, no WANDA, pain is improved, currently pending CT. Patient moved to monitored room. Once there patient removed from Supplemental O2 with pulse ox 100%. Lipase greater than 20,000. Amylase elevated. Lactic 2.4. CT abdomen pelvis has been performed pending, does show appear to show signs of pancreatitis with fat stranding/inflammation around region of the pancreas. Fluids ordered as well as a right upper quadrant ultrasound to ensure assess for, bile duct dilation. Right upper quadrant ultrasound shows no common bile duct dilation. Updated patient to findings and plan for admission for pancreatitis. Of note patient denies any alcohol use. She is continuing to have pain though it is slightly im proved from prior. Ordered additional half milligram of Dilaudid. Additionally maintenance IV fluids were ordered. Case was discussed with Dr. Neri who kindly accepted patient for admission. Undiagnosed new problem with uncertain prognosis? @ -No Drug Therapy requiring intensive monitoring for toxicity (Heparin, Nitro, Insulin, Cardizem)? @ -No Were any procedures done? @ -No Diagnosis/symptom? @ -Acute pancreatitis Acute, or Chronic, or Acute on Chronic? @ -Acute Uncomplicated (without systemic symptoms) or Complicated (systemic symptoms)? @ -Complicated Side effects of treatment? @ -No Exacerbation, Progression, or Severe Exacerbation? @ -No Poses a threat to life or bodily function? How? (Chest pain, USA, GA, pneumonia, PE, COPD, DKA, ARF, appy, cholecystitis, CVA, Diverticulitis, Homicidal, Suicidal, threat to staff... and all critical care pts) @Potentially - Lab Data Result diagrams: 05/29/24 17:12 05/29/24 17:12 Lab Results 05/29/24 05/29/24 05/29/24 Range/Units 17:12 17:12 17:12 WBC 9.7 (3.8-10.6) k/uL RBC 4.26 (3.80-5.40) m/uL Hgb 13.8 (11.4-16.0) gm/dL Hct 40.0 (34.0-46.0) % MCV 93.9 (80.0-100.0) fL MCH 32.4 (25.0-35.0) pg MCHC 34.6 (31.0-37.0) g/dL RDW 12.5 (11.5-15.5) % Plt Count 130 L (150-450) k/uL MPV 8.7 Neutrophils % 76 % Lymphocytes % 18 % Monocytes % 6 % Eosinophils % 1 % Basophils % 0 % Neutrophils # 7.3 (1.3-7.7) k/uL Lymphocytes # 1.7 (1.0-4.8) k/uL Monocytes # 0.5 (0-1.0) k/uL Eosinophils # 0.1 (0-0.7) k/uL Basophils # 0.0 (0-0.2) k/uL Sodium 140 (137-145) mmol/L Potassium 4.5 (3.5-5.1) mmol/L Chloride 106 (98-107) mmol/L Carbon Dioxide 24 (22-30) mmol/L Anion Gap 10 mmol/L BUN 16 (7-17) mg/dL Creatinine 0.76 (0.52-1.04) mg/dL Est GFR (CKD-EPI)AfAm >90 (>60 ml/min/1.73 sqM) Est GFR (CKD-EPI)NonAf 87 (>60 ml/min/1.73 sqM) Glucose 104 H (74-99) mg/dL Lactic Ac Sepsis Rflx Plasma Lactic Acid Moiz 2.4 H* (0.7-2.0) mmol/L Calcium 10.1 (8.4-10.2) mg/dL Total Bilirubin 1.7 H (0.2-1.3) mg/dL AST 34 (14-36) U/L ALT 16 (4-34) U/L Alkaline Phosphatase 57 (38-126) U/L Total Protein 7.2 (6.3-8.2) g/dL Albumin 4.4 (3.5-5.0) g/dL Amylase 2365 H* (30-110) U/L Lipase >31537 H (23-300) U/L 10/18/24 Range/Units 18:01 WBC (3.8-10.6) k/uL RBC (3.80-5.40) m/uL Hgb (11.4-16.0) gm/dL Hct (34.0-46.0) % MCV (80.0-100.0) fL MCH (25.0-35.0) pg MCHC (31.0-37.0) g/dL RDW (11.5-15.5) % Plt Count (150-450) k/uL MPV Neutrophils % % Lymphocytes % % Monocytes % % Eosinophils % % Basophils % % Neutrophils # (1.3-7.7) k/uL Lymphocytes # (1.0-4.8) k/uL Monocytes # (0-1.0) k/uL Eosinophils # (0-0.7) k/uL Basophils # (0-0.2) k/uL Sodium (137-145) mmol/L Potassium (3.5-5.1) mmol/L Chloride (98-107) mmol/L Carbon Dioxide (22-30) mmol/L Anion Gap mmol/L BUN (7-17) mg/dL Creatinine (0.52-1.04) mg/dL Est GFR (CKD-EPI)AfAm (>60 ml/min/1.73 sqM) Est GFR (CKD-EPI)NonAf (>60 ml/min/1.73 sqM) Glucose (74-99) mg/dL Lactic Ac Sepsis Rflx Y Plasma Lactic Acid Moiz (0.7-2.0) mmol/L Calcium (8.4-10.2) mg/dL Total Bilirubin (0.2-1.3) mg/dL AST (14-36) U/L ALT (4-34) U/L Alkaline Phosphatase (38-126) U/L Total Protein (6.3-8.2) g/dL Albumin (3.5-5.0) g/dL Amylase (30-110) U/L Lipase (23-300) U/L Disposition Clinical Impression: Acute pancreatitis Disposition: ADMITTED IP TO THIS [facility] Condition: Good
[2024-05-29 17:41] LABS: ALT 16 U/L (4-34); AST 34 U/L (14-36); African American GFR (CKD) >90 (>60 ml/min/1.73 sqM); Albumin 4.4 g/dL (3.5-5.0); Alkaline Phosphatase 57 U/L (38-126); Anion Gap 10 mmol/L; Blood Urea Nitrogen 16 mg/dL (7-17); Calcium 10.1 mg/dL (8.4-10.2); Carbon Dioxide 24 mmol/L (22-30); Chloride 106 mmol/L (98-107); Glucose 104 mg/dL (74-99); Non-African American GFR(CKD) 87 (>60 ml/min/1.73 sqM); Potassium 4.5 mmol/L (3.5-5.1); Sodium 140 mmol/L (137-145); Total Bilirubin 1.7 mg/dL (0.2-1.3); Total Protein 7.2 g/dL (6.3-8.2)
[2024-05-29 17:54] LABS: Platelet Count 130 k/uL (150-450)
[2024-05-29 18:00] LABS: Amylase 2365 U/L (30-110)
[2024-05-29 18:36] LABS: Lipase >20000 U/L (23-300)
[2024-05-29] MEDS: SODIUM CHLORIDE 0.9% 1,000 ML IV ONE (18:44)
--- NOTE | 2024-05-29 19:23 | CT ---
EXAMINATION TYPE: CT abdomen pelvis w con DATE OF EXAM: 05/29/2024 COMPARISON: 09/05/2023 INDICATION: right sided abdominal pain DLP: 908.8 mGycm, Automated exposure control for dose reduction was used. CONTRAST: 100 ml mL of Isovue 300. Study performed without Oral Contrast TECHNIQUE: Axial images were obtained from above the diaphragm to the pubic rami in the axial plane a t 5 mm thick sections. Reconstructed images are reviewed on the computer in the coronal plane. FINDINGS: Limited CT sections are obtained the lung bases. The lung bases are clear. CT ABDOMEN: Gastric sleeve appears to be present. Liver: Normal Spleen: Normal Pancreas: Borders of the head and body of the pancreas are indistinct. A small amount of fluid or inf lammatory changes adjacent. Correlate for acute pancreatitis. No abscess formation identified at this time. No pseudocyst formation identified Adrenal glands: The adrenal glands are normal. Gallbladder: Not identified. Correlate with the surgical history. Kidneys: No masses are evident. No hydronephrosis is present. There is a 2.2 cm cyst inferior pole right kidney. There is a posterior lateral mid left renal cyst measuring 3.1 cm. Smaller cortical re nal cysts are identified on the delayed images Aorta: Vascular calcification is within the aorta. Inferior vena cava: Normal. CT PELVIS: Fluid filled small bowel loops are normal right mid abdomen small degree left mid abdomen. Findings t he ribs focal ileus. Suspicious sonographic transition is not identified. Distal small bowel loops ar e unremarkable. Colon appears unremarkable. Study is without oral contrast limiting evaluation. Appendix: Normal as visualized. No dilatation or adjacent inflammatory changes Urinary bladder: Normal. Genitourinary structures: Uterus is normal. Adnexa are unremarkable. Osseous structures: No suspicious lytic or sclerotic lesions. Some degenerative disc change present IMPRESSION: 1. Clinical correlation for acute pancreatitis. 2. Some mild focal ileus is present. 3. Normal appendix. [facility], , 05/29/2024 7:21 PM
--- NOTE | 2024-05-29 20:10 | US ---
EXAMINATION TYPE: US abdomen limited DATE OF EXAM: 05/29/2024 COMPARISON: NONE CLINICAL INDICATION: Female, 59 years old with history of Elevated T bili, amylase; Pain gallbladder removed elevated labs. TECHNIQUE: Grayscale and color Doppler imaging of the right upper quadrant was performed. FINDINGS: EXAM MEASUREMENTS: Liver Length: 11.9 cm Gallbladder Wall: Surgically absent CBD: .5 cm Right Kidney: 9.5 x 3.9 x 4.2 cm CONTROLLER INSTRUCTOR NOTES: Pancreas: Obscured by bowel gas Liver: Increased attenuation Gallbladder: Surgically absent Evidence for sonographic Fish's sign: No CBD: wnl Right Kidney: Hypoechoic area, may be a cyst, seen lower pole 3.1 x 2.5 x 2.8 cm. IMPRESSION: 1. Suspected cyst inferior pole right kidney correlates with CT. 2. Pancreatitis identified by CT not identified due to bowel gas present on the current ultrasound. [facility], Workstation: [facility], 05/29/2024 8:07 PM
[2024-05-29] MEDS ORDERED: MELATONIN 3 MG TABLET PO PRN (20:53)
[2024-05-29] MEDS ORDERED: MAG HYDROX/AL HYDROX/SIMETH 30 ML CUP PO PRN (20:53)
[2024-05-29] MEDS ORDERED: HYDROmorphone 0.5 MG/0.5 ML SYRINGE IVP PRN (20:53)
[2024-05-29] MEDS ORDERED: ACETAMINOPHEN TAB 325 MG TAB PO PRN (20:53)
[2024-05-29] MEDS ORDERED: CALCIUM CARBONATE 500 MG CHEWABLE PO PRN (20:53)
[2024-05-29] MEDS ORDERED: ONDANSETRON 4 MG/2 ML VIAL IVP PRN (20:53)
[2024-05-29] MEDS ORDERED: NALOXONE 0.4 MG/ML 1 ML VIAL IV PRN (20:53)
[2024-05-29] MEDS: HYDROmorphone 0.5 MG/0.5 ML SYRINGE IVP STA (21:11)
[2024-05-29] MEDS: SODIUM CHLORIDE 0.9% 1,000 ML IV SCH (21:15)
[2024-05-29] MEDS: DEXTROSE 5%-0.45% NACL 1,000 ML IV SCH (21:39)
[2024-05-29 21:58] LABS: Appearance,Urine Clear (Clear); Bilirubin,Urine Negative (Negative); Blood,Urine Trace (Negative); Color,Urine Colorless; Glucose,Urine (UA) Negative (Negative); Ketones,Urine 2+ (Negative); Leukocyte Esterase,Urine Negative (Negative); Mucus,Urine Rare /hpf; Nitrite,Urine Negative (Negative); PH, Urine 5.5 (5.0-8.0); Protein,Urine Negative (Negative); RBC,Urine 1 /hpf (0-5); Squamous Epithelial Cell,Urine <1 /hpf (0-4); Urobilinogen,Urine <2.0 mg/dL (<2.0); WBC,Urine 2 /hpf (0-5)
[2024-05-29 22:02] LABS: Specific Gravity,Urine >1.050 (1.001-1.035)
--- NOTE | 2024-05-29 22:21 | P.HPIM ---
History of Present Illness H&P Date: 05/29/24 Chief Complaint: abd pain Patient is a 59-year-old female with hypothyroidism, gastric sleeve and a history of cholecystectomy who came in for abdominal pain. Patient reported today around lunchtime, patient noted right-sided dull abdominal pain that was nonradiating and constant that was initially with an intensity of 5 out of 10 and gradually increased to 10 out of 10 at maximum with associate seated sweats, chills, nausea and subjective fever. She denied jaundice, vomiting, diarrhea, constipation, chest pain, palpitations, shortness of breath, cough, calf tenderness, recent travel, or sick contacts. She was admitted last Aug 2023 for the same kind of pain but was determined to be viral gastroenteritis and was given supportive management and sent home. Review of systems: Pertinent positives and negatives as discussed in HPI, a complete review of systems was performed and all other systems are negative. Social history: Tobacco: Former smoker. Smoked half a pack for 30 years. Quit 3 years ago. Now has transition to vaping daily. Alcohol: Occasional alcohol intake Recreational drugs: Denies illicit drug use Travel: No recent travel Physical examination: Vital signs reviewed General: non toxic, no distress, appears at stated age, Derm: no unusual rashes/lesions, warm Head: atraumatic, normocephalic, symmetric Eyes: EOMI, anicteric sclera, pupils equal round reactive to light ENT: Nose and ears atraumatic Neck: No masses or lesions grossly, trachea midline, supple Mouth: no lip lesion, mucus membranes moist Cardiovascular: S1S2 reg, no murmur Lungs: CTA bilateral, no rhonchi, no rales, no accessory muscle use Abdominal: soft, nondistended, tender to light palpation at right upper quadrant , no guarding Ext: muscle strength 5 out of 5 in all 4 upper and lower distal extremities grossly, no gross muscle atrophy, no contractures, positive dorsalis pedis pulse bilateral, no bilateral upper and lower extremity edema Neuro: CN II-XI grossly intact, no gross focal neuro deficits Psych: Alert and oriented x 3, appropriate affect and mood Assessment/Plan: Is a 59-year-old female that came in for severe right-sided abdominal pain. Lipase was elevated at greater than 20,000. ED documentation reviewed and case discussed with ED provider. Agree to admit this patient for acute idiopathic pancreatitis with an anticipated length of stay greater than 2 midnights. #. Moderately severe acute pancreatitis secondary to local fluid and inflammation around the pancrease as evident by CT, rule out biliary and hypertriglyceridemia causes #. Lactic acidosis due to above Lipase elevated beyond x 3 the upper normal limit at greater than 20,000. Amylase elevated at 2365. Calcium normal 10.1. Lactic acid elevated from 0.9 to 2.4. WBC normal at 9.7 CT abdomen shows small volume of fluid or inflammation in the pancreas and negative for abscess or pseudocyst. Common bile duct not dilated on abdominal ultrasound. -N.p.o. -Pain control with Dilaudid 0.5 mg IVP every 3 hours as needed -Zofran 4 mg IVP Q8 as needed for nausea and vomiting -IV fluids lactated Ringer's 150 cc/h, s/p 2 L normal saline -Total bilirubin elevated at 1.7. Consider MRCP to rule out biliary causes. -Lipid profile, check Triglycerides, if elevated >>1000 then would initiate Insulin drip and discuss with nephro plasmaphresis depends on severity monitor hematocrit, BUN, cr, urine output , oxygen sat, Ca consider initiating early enteral feeding once tolerated #. Thrombocytopenia Platelet count decreased at 130. Patient asymtomatic at this time -CBC at AM. If still decreased will do further work up Chronic conditions: #. Hypothyroidism: On Synthroid 88 mcg p.o. daily -Resume home medications once reconciled DVT prophylaxis: Lovenox 40 SQ daily GI prophylaxis: Protonix 40 mg IV daily CODE STATUS: Full Discussed with: Patient Anticipated discharge place: Home Past Medical History Past Medical History: Thyroid Disorder Additional Past Medical History / Comment(s): cholecystitis History of Any Multi-Drug Resistant Organisms: None Reported Past Surgical History: Bariatric Surgery, Cholecystectomy Additional Past Surgical History / Comment(s): gastric sleeve. COLONOSCOPY Past Anesthesia/Blood Transfusion Reactions: No Reported Reaction Past Psychological History: No Psychological Hx Reported Smoking Status: Vaper Past Alcohol Use History: Occasional Past Drug Use History: None Reported - Past Family History Mother Family Medical History: Cancer Additional Family Medical History / Comment(s): gastric cancer, Brother(s) Family Medical History: Diabetes Mellitus Medications and Allergies Home Medications Medication Instructions Recorded Confirmed Type Levothyroxine Sodium [Synthroid] 88 mcg PO DAILY 03/31/20 05/29/24 History Allergies Allergy/AdvReac Type Severity Reaction Status Date / Time No Known Allergies Allergy Verified 05/29/24 20:26 Physical Exam Vitals: Vital Signs Temp Pulse Resp BP Pulse Ox 05/29/24 20:08 66 16 107/71 05/29/24 18:09 98.4 F 68 16 119/68 99 05/29/24 16:41 97.5 F L 65 18 113/73 95 Intake and Output 05/29/24 05/29/24 05/29/24 06:59 14:59 22:59 Other: Weight 74.843 kg Results CBC & Chem 7: 05/29/24 17:12 05/29/24 17:12 Labs: Abnormal Lab Results - Last 24 Hours (Table) 05/29/24 05/29/24 05/29/24 Range/Units 17:12 17:12 17:12 Plt Count 130 L (150-450) k/uL Glucose 104 H (74-99) mg/dL Plasma Lactic Acid Moiz 2.4 H* (0.7-2.0) mmol/L Total Bilirubin 1.7 H (0.2-1.3) mg/dL Amylase 2365 H* (30-110) U/L Lipase >11175 H (23-300) U/L Assessment and Plan Assessment: I have seen and evaluated the patient today. I Discussed the case with the resident and agree with the resident's findings I edited the assessment and plan as necessary as documented in the resident's note.
[2024-05-30] MEDS: LACTATED RINGERS 1,000 ML IV ONE ×2 (00:20→15:59)
[2024-05-30] MEDS: MORPHINE SULFATE 4 MG/ML SYRINGE IV PRN (00:28)
[2024-05-30 07:59] LABS: INR 1.1 (<1.2); Partial Thromboplastin Time 24.9 sec (22.0-30.0); Prothrombin Time 11.6 sec (10.0-12.5)
[2024-05-30] MEDS: ENOXAPARIN 40 MG/0.4 ML SYRINGE SQ SCH (09:10)
[2024-05-30] MEDS: PANTOPRAZOLE 40 MG/10 ML VIAL IV SCH (09:11)
[2024-05-30 09:51] LABS: ALT 13 U/L (4-34); AST 33 U/L (14-36); African American GFR (CKD) >90 (>60 ml/min/1.73 sqM); Albumin 3.3 g/dL (3.5-5.0); Albumin/Globulin Ratio 1.3; Alkaline Phosphatase 44 U/L (38-126); Anion Gap 6 mmol/L; Blood Urea Nitrogen 13 mg/dL (7-17); Calcium 8.9 mg/dL (8.4-10.2); Carbon Dioxide 24 mmol/L (22-30); Chloride 109 mmol/L (98-107); Globulin 2.5 g/dL; Glucose 75 mg/dL (74-99); Non-African American GFR(CKD) >90 (>60 ml/min/1.73 sqM); Sodium 139 mmol/L (137-145); Total Bilirubin 2.2 mg/dL (0.2-1.3); Total Protein 5.8 g/dL (6.3-8.2)
[2024-05-30] MEDS: LACTATED RINGERS 1,000 ML IV SCH (10:09)
--- NOTE | 2024-05-30 11:39 | P.CON ---
Consult Note - . Consult date: 05/30/24 Assessment/Plan:: Patient is a 59-year-old female the past medical history of gastric sleeve, prior cholecystectomy presenting for sudden onset abdominal pain. Patient was eating carrots and hummus when she began experiencing right sided abdominal pain. Denies nausea, vomiting, diarrhea black or bloody stools. Denies fevers. Denies chills. Denies chest pain or difficulty in breathing. No pain medications prior to arrival. Denies dysuria or hematuria. She had a CT-AP which showed pancreatitis with associated ileus. This morning on evaluation, patient denies abdominal pain and nausea. She is passing gas. Review of Systems ROS Statement: Those systems with pertinent positive or pertinent negative responses have been documented in the HPI. ROS Other: All systems not noted in ROS Statement are negative. Constitutional: Denies: fever, chills Respiratory: Denies: dyspnea Cardiovascular: Denies: chest pain Gastrointestinal: Reports: abdominal pain. Denies: nausea, vomiting, diarrhea Past Medical History Past Medical History: Thyroid Disorder Additional Past Medical History / Comment(s): cholecystitis History of Any Multi-Drug Resistant Organisms: None Reported Past Surgical History: Bariatric Surgery, Cholecystectomy Additional Past Surgical History / Comment(s): gastric sleeve. COLONOSCOPY Past Anesthesia/Blood Transfusion Reactions: No Reported Reaction Past Psychological History: No Psychological Hx Reported Smoking Status: Vaper Past Alcohol Use History: Occasional Past Drug Use History: None Reported - Past Family History Mother Family Medical History: Cancer Additional Family Medical History / Comment(s): gastric cancer, Brother(s) Family Medical History: Diabetes Mellitus General Exam PE: CONSTITUTIONAL: Ill-appearing, shaking, nontoxic-appearing, uncomfortable SKIN: Warm, dry, no jaundice, hives or petechiae, no rashes EYES: Pupils are equally round, extraocular movements intact without nystagmus, clear conjunctiva, non-icteric sclera HENT: Normocephalic, atraumatic, moist mucus membranes, oropharynx clear without exudates NECK: , Full range of motion, normal appearance PULMONARY: Clear to auscultation without wheezes, rhonchi, or rales, normal excursion, no accessory muscle use and no stridor CARDIOVASCULAR: Regular rate, rhythm, normal S1 and S2. No appreciated murmurs, rubs or gallops. Strong radial pulses with intact distal perfusion. No lower extremity edema GASTROINTESTINAL: Soft, active bowel sounds throughout, diffusely tender but predominantly in the right lower quadrant non-distended, no palpable masses, no rebound; guarding present with palpation of the abdomen. No hepatosplenomegaly GENITOURINARY: MUSCULOSKELETAL: Extremities have no gross deformity, no edema, redness, or swelling. No calf swelling NEUROLOGIC:_a/o x 3, GCS 15, normal mentation and speech. Moves all extremities x 4 without motor or sensory deficit PSYCHIATRIC:_normal mood and affect, thought process is clear and linear 59 year old female with pancreatitis with associated ileus. Patient has history of cholecystectomy -Ok for Clear Liquid Diet, Advance as tolerated -Pain and Nausea Control -Rest of care per medicine team -Will follow Herb Mcpherson DO [facility] [phone]
[2024-05-30 13:18] LABS: Basophils # (A) 0.03 X 10*3/uL (0.00-0.10); Basophils % (A) 0.5 %; Eosinophils # (A) 0.08 X 10*3/uL (0.04-0.35); Eosinophils % (A) 1.4 %; HGB 11.5 g/dL (12.0-15.0); Lymphocytes # (A) 1.64 X 10*3/uL (0.90-5.00); Lymphocytes % (A) 27.7 %; MCH 31.9 pg (27.0-32.0); MCHC 33.8 g/dL (32.0-37.0); MCV 94.2 FL (80.0-97.0); Mean Platelet Volume 9.7 FL (9.5-12.2); Monocytes # (A) 0.53 X 10*3/uL (0.20-1.00); NRBC Per 100 WBC 0 X 10*3/uL (0.00-0.01); Neutrophils # (A) 3.62 X 10*3/uL (1.80-7.70); Neutrophils % (A) 61.2 %; Platelet Count 192 X 10*3/uL (140-440); RBC 3.61 X 10*6/uL (4.10-5.20); RDW 12.4 % (11.5-14.5); WBC 5.91 X 10*3/uL (4.50-10.00)
[2024-05-30] MEDS ORDERED: HYDROmorphone 1 MG/ML 1 ML SYRINGE IVP PRN (15:40)
--- NOTE | 2024-05-30 15:54 | P.PN ---
Subjective Progress Note Date: 05/30/24 Hospital course: Patient is a 59-year-old female with a past medical history of hypothyroidism, gastroparesis, gastric sleeve, and previous cholecystectomy. She presented to the emergency department on 05/29/2024 with a chief complaint of abdominal pain. Upon arrival to our facility, patient underwent evaluation in the emergency department. Vital signs upon arrival show blood pressure 113/73, heart rate 65, respiratory rate 18, temp 97.5 F, and SpO2 of 95% on room air. Labs were completed and reviewed. CBC showing thrombocytopenia with platelet count of 130 otherwise normal findings. BMP unremarkable. Blood glucose 104. Initial lactic acid was elevated at 2.4. Liver profile revealed elevated total bili of 1.7 otherwise normal findings. Amylase was critical at 2365 and lipase was greater than 20,000. Urinalysis positive for blood and ketones but negative for infection. Abdominal ultrasound showing suspected cyst of inferior pole of right kidney and pancreatitis. CT abdomen and pelvis consistent with acute pancreatitis and showing mild focal ileus also present. Physical exam: Vital signs reviewed and stable. General: Nontoxic, no distress and appears stated age. Derm: Skin warm and dry, normal coloration for ethnicity. Head: Atraumatic, normocephalic and symmetric. Eyes: EOM's intact, no lid lag, and anicteric sclera Mouth: no lip lesions, mucus membranes moist Cardiovascular: regular rate and rhythm with normal S1S2, no murmur, positive posterior tibial pulses bilaterally, and cap refill < 2 seconds. Lungs: Respirations even, regular, and unlabored on room air. Lungs CTA b ilaterally, no rhonchi, no rales, no wheezing, and no accessory muscle usage. Abdominal: soft, nontender to palpation, no guarding, no appreciable organomegaly Ext: ROM intact. No gross muscle atrophy, no edema, no contractures Neuro: Speech clear, face symmetrical and CN II-XII grossly intact with no noted focal neuro deficits Psych: Alert and oriented to person, place, time, and situation. Appropriate and pleasant affect. Assessment and Plan of Care: Acute pancreatitis -Amylase was critical at 2365 and lipase was greater than 20,000. -Triglycerides normal findings of 54.40. -Abdominal ultrasound showing suspected cyst of inferior pole of right kidney and pancreatitis. -CT abdomen and pelvis consistent with acute pancreatitis and showing mild focal ileus also present. -Maintain clear liquid diet. -Continue vigorous IV fluid hydration with lactated Ringer's at 125 cc/h. -Symptomatic care and pain management. Zofran 4 mg IVP every 8 hours as needed for nausea/vomiting, Dilaudid 0.5 mg every 3 hours as needed for moderate pain and Dilaudid 1 mg every 4 hours for severe pain. Order also placed for Toradol 15 mg IVP every 6 hours for pain. Incidental finding on CT showing mild ileus Hyperbilirubinemia -Consult placed to general surgery for evaluation and recommendations. -Maintain clear liquid diet. -Monitor output. Patient was unclear when last bowel movement was but states she is currently passing flatus. Hypothyroidism -Continue daily medication regimen with levothyroxine 88 mcg daily. Data and imaging reviewed: -CT abdomen and pelvis consistent with acute pancreatitis and showing mild focal ileus also present. -Morning labs reviewed. CBC showing stable normocytic anemia with hemoglobin of 11.5. BMP showing mild hyperchloremia with chloride of 109. Blood glucose 75. Liver profile showing elevated total bili of 2.2. Triglycerides 54.40. -Vital signs reviewed. Blood pressure 101/60, heart rate 63, respiratory rate 16, temp 99.3 F, and SpO2 of 98% on room air. CODE STATUS: Full code DVT prophylaxis: Lovenox Anticipated discharge date: Pending clinical course Anticipated discharge place: Home Patient was seen independently by Nurse Pracitioner. This document was prepared using [employer] dictation software. Please allow for errors in pulping machine operator, while rare they do occur. I reviewed the documentation as provided by the SAM above, who is the original author of this note. I agree with the documented assessment and plan, with the following changes: none Objective - Vital Signs Vital signs: Vital Signs Temp 99.3 F 05/30/24 07:00 Pulse 63 05/30/24 09:09 Resp 15 05/30/24 07:00 BP 101/60 05/30/24 09:09 Pulse Ox 98 05/30/24 09:09 FiO2 Intake & Output 05/29/24 05/30/24 05/30/24 18:59 06:59 18:59 Intake Total 0 Balance 0 Weight 74.843 kg 74.843 kg Intake: Oral 0 Other: # Voids 2 - Labs CBC & Chem 7: 05/30/24 09:27 05/30/24 09:27 Labs: Abnormal Lab Results - Last 24 Hours (Table) 05/29/24 05/29/24 05/29/24 Range/Units 17:12 17:12 17:12 Plt Count 130 L (150-450) k/uL Glucose 104 H (74-99) mg/dL Plasma Lactic Acid Moiz 2.4 H* (0.7-2.0) mmol/L Total Bilirubin 1.7 H (0.2-1.3) mg/dL Amylase 2365 H* (30-110) U/L Lipase >80192 H (23-300) U/L Ur Specific Garretson (1.001-1.035) Urine Ketones (Negative) Urine Blood (Negative) Urine Mucus (None) /hpf 05/29/24 Range/Units 21:16 Plt Count (150-450) k/uL Glucose (74-99) mg/dL Plasma Lactic Acid Moiz (0.7-2.0) mmol/L Total Bilirubin (0.2-1.3) mg/dL Amylase (30-110) U/L Lipase (23-300) U/L Ur Specific Garretson >1.050 H (1.001-1.035) Urine Ketones 2+ H (Negative) Urine Blood Trace H (Negative) Urine Mucus Rare H (None) /hpf
[2024-05-30] MEDS: KETOROLAC 15 MG/ML 1 ML VIAL IVP PRN (15:59)
[2024-05-30] MEDS: LACTATED RINGERS 1,000 ML BAG IV STA (19:48)
--- NOTE | 2024-05-31 04:52 | P.PN ---
Progress Note - Text Progress Note Date: 05/31/24 NATALIE. Patient tolerating diet. Pain is controlled. VSS General-NAD Abdomen-soft, NTND 59 year old female with pancreatitis with associated ileus. Patient has history of cholecystectomy -Full Liquid Diet, Advance Diet as Tolerated -Pain and Nausea Control -Rest of care per medicine team -Will follow Herb Mcpherson DO [facility] [phone]
[2024-05-31] MEDS: LEVOTHYROXINE 88 MCG TAB PO SCH (06:49)
[2024-05-31 09:47] LABS: Basophils # (A) 0.03 X 10*3/uL (0.00-0.10); Basophils % (A) 0.6 %; Eosinophils # (A) 0.14 X 10*3/uL (0.04-0.35); HCT 30.9 % (37.2-46.3); HGB 10.6 g/dL (12.0-15.0); Lymphocytes # (A) 1.84 X 10*3/uL (0.90-5.00); Lymphocytes % (A) 39.3 %; MCHC 34.3 g/dL (32.0-37.0); MCV 96.3 FL (80.0-97.0); Mean Platelet Volume 10.3 FL (9.5-12.2); Monocytes # (A) 0.44 X 10*3/uL (0.20-1.00); Monocytes % (A) 9.4 %; NRBC Per 100 WBC 0 X 10*3/uL (0.00-0.01); Neutrophils # (A) 2.22 X 10*3/uL (1.80-7.70); Neutrophils % (A) 47.5 %; Platelet Count 170 X 10*3/uL (140-440); RBC 3.21 X 10*6/uL (4.10-5.20); RDW 12.2 % (11.5-14.5); WBC 4.68 X 10*3/uL (4.50-10.00)
[2024-05-31 10:49] LABS: ALT 9 U/L (8-44); AST 20 U/L (13-35); Albumin 3.2 g/dL (3.8-4.9); Albumin/Globulin Ratio 1.78 Ratio (1.60-3.17); Alkaline Phosphatase 49 U/L (41-126); BUN/Creat Ratio 11.14 Ratio (12.00-20.00); Bilirubin, Conjugated 0.37 mg/dL (0.20-0.40); Bilirubin,Unconjugated 1.13 mg/dL (0.20-1.00); Blood Urea Nitrogen 7.8 mg/dL (9.0-27.0); Calcium 8.7 mg/dL (8.7-10.3); Carbon Dioxide 23.6 mmol/L (21.6-31.8); Chloride 108 mmol/L (96-109); Globulin 1.8 g/dL (1.6-3.3); Glucose 80 mg/dL (70-110); Sodium 140 mmol/L (135-145); Total Bilirubin 1.5 mg/dL (0.3-1.2)
--- NOTE | 2024-05-31 14:59 | P.PN ---
Subjective Progress Note Date: 05/31/24 Hospital course: Patient is a 59-year-old female with a past medical history of hypothyroidism, gastroparesis, gastric sleeve, and previous cholecystectomy. She presented to the emergency department on 05/29/2024 with a chief complaint of abdominal pain. Upon arrival to our facility, patient underwent evaluation in the emergency department. Vital signs upon arrival show blood pressure 113/73, heart rate 65, respiratory rate 18, temp 97.5 F, and SpO2 of 95% on room air. Labs were completed and reviewed. CBC showing thrombocytopenia with platelet count of 130 otherwise normal findings. BMP unremarkable. Blood glucose 104. Initial lactic acid was elevated at 2.4. Liver profile revealed elevated total bili of 1.7 otherwise normal findings. Amylase was critical at 2365 and lipase was greater than 20,000. Urinalysis positive for blood and ketones but negative for infection. Abdominal ultrasound showing suspected cyst of inferior pole of right kidney and pancreatitis. CT abdomen and pelvis consistent with acute pancreatitis and showing mild focal ileus also present. Physical exam: Patient was seen and fully evaluated at bedside this morning. She is tolerating clear liquid diet, advance to full liquid diet at this time. Patient also reports improvement of pain and only remains slightly tender to touch in right lower quadrant. Will continue to advance diet slowly and continue IV fluid hyd ration for an additional 24 hours as patient's blood pressures remain slightly soft. A repeat lactate was completed overnight resulting at 0.9. Vital signs reviewed and stable. General: Nontoxic, no distress and appears stated age. Derm: Skin warm and dry, normal coloration for ethnicity. Head: Atraumatic, normocephalic and symmetric. Eyes: EOM's intact, no lid lag, and anicteric sclera Mouth: no lip lesions, mucus membranes moist Cardiovascular: regular rate and rhythm with normal S1S2, no murmur, positive posterior tibial pulses bilaterally, and cap refill < 2 seconds. Lungs: Respirations even, regular, and unlabored on room air. Lungs CTA bilaterally, no rhonchi, no rales, no wheezing, and no accessory muscle usage. Abdominal: soft, mild tenderness right lower quadrant upon palpation, no guarding, no appreciable organomegaly Ext: ROM intact. No gross muscle atrophy, no edema, no contractures Neuro: Speech clear, face symmetrical and CN II-XII grossly intact with no noted focal neuro deficits Psych: Alert and oriented to person, place, time, and situation. Appropriate and pleasant affect. Assessment and Plan of Care: Acute pancreatitis -Amylase was critical at 2365 and lipase was greater than 20,000. -Triglycerides normal findings of 54.40. -Abdominal ultrasound showing suspected cyst of inferior pole of right kidney and pancreatitis. -CT abdomen and pelvis consistent with acute pancreatitis and showing mild focal ileus also present. -Patient tolerating clear liquid diet, denies episodes of nausea or vomiting and improvement of pain will advance diet to full liquid. -Continue vigorous IV fluid hydration with lactated Ringer's at 125 cc/h for an additional 24 hours. -Symptomatic care and pain management. Zofran 4 mg IVP every 8 hours as needed for nausea/vomiting, Dilaudid 0.5 mg every 3 hours as needed for moderate pain and Dilaudid 1 mg every 4 hours for severe pain. Order also placed for Toradol 15 mg IVP every 6 hours for pain. Incidental finding on CT showing mild ileus Hyperbilirubinemia -General Surgery following, reviewed documentation in chart. -Maintain clear liquid diet. -Monitor output. Patient was unclear when last bowel movement was but states she is currently passing flatus. Hypothyroidism -Continue daily medication regimen with levothyroxine 88 mcg daily. Data and imaging reviewed: -Morning labs reviewed. CBC showing stable normocytic anemia with hemoglobin of 10.6. BMP unremarkable. Blood glucose 80. Liver profile showing elevated total bili of 1.5 and unconjugated bilirubin of 1.13. -Vital signs reviewed. Blood pressure remains soft this morning at 96/58, heart rate 63, respiratory rate 15, temp 98.5 F, and SpO2 of 98% on room air. CODE STATUS: Full code DVT prophylaxis: Lovenox Anticipated discharge date: Pending clinical course Anticipated discharge place: Home Patient was seen independently by Nurse Pracitioner. This document was prepared using [employer] dictation software. Please allow for errors in screen printing cloth spreader, while rare they do occur. I reviewed the documentation as provided by the SAM above, who is the original author of this note. I agree with the documented assessment and plan, with the following changes: none Objective - Vital Signs Vital signs: Vital Signs Temp 98.5 F 05/31/24 07:02 Pulse 63 05/31/24 07:02 Resp 15 05/31/24 07:02 BP 96/58 05/31/24 07:02 Pulse Ox 98 05/31/24 07:02 FiO2 Intake & Output 05/30/24 05/31/24 05/31/24 18:59 06:59 18:59 Intake Total 118 480 Balance 118 480 Intake: Oral 118 480 Other: Voiding Method Toilet Toilet # Voids 1 3 - Labs CBC & Chem 7: 05/31/24 03:59 05/31/24 03:59 Labs: Abnormal Lab Results - Last 24 Hours (Table) 05/30/24 05/30/24 Range/Units 09:27 09:27 RBC 3.61 L (4.10-5.20) X 10*6/uL Hgb 11.5 L (12.0-15.0) g/dL Hct 34.0 L (37.2-46.3) % Chloride 109 H (98-107) mmol/L Total Bilirubin 2.2 H (0.2-1.3) mg/dL Total Protein 5.8 L (6.3-8.2) g/dL Albumin 3.3 L (3.5-5.0) g/dL
[2024-05-31 19:01] VITALS: RESP 16
[2024-06-01 07:32] VITALS: BP 116/70; PULSE 61; TEMP 97.2
[2024-06-01 08:35] LABS: HCT 31.5 % (37.2-46.3); HGB 10.9 g/dL (12.0-15.0); MCH 32.9 pg (27.0-32.0); MCHC 34.6 g/dL (32.0-37.0); MCV 95.2 FL (80.0-97.0); Mean Platelet Volume 10.5 FL (9.5-12.2); NRBC Per 100 WBC 0 X 10*3/uL (0.00-0.01); Platelet Count 184 X 10*3/uL (140-440); RBC 3.31 X 10*6/uL (4.10-5.20); WBC 4.36 X 10*3/uL (4.50-10.00)
[2024-06-01 09:22] LABS: BUN/Creat Ratio 7.57 Ratio (12.00-20.00); Blood Urea Nitrogen 5.3 mg/dL (9.0-27.0); Carbon Dioxide 20.7 mmol/L (21.6-31.8); Chloride 108 mmol/L (96-109); Glucose 78 mg/dL (70-110); Magnesium 1.5 mg/dL (1.5-2.4); Potassium 4.1 mmol/L (3.5-5.5); Sodium 142 mmol/L (135-145)
[2024-06-01 09:23] LABS: ALT 10 U/L (8-44); AST 18 U/L (13-35); Albumin 3.3 g/dL (3.8-4.9); Albumin/Globulin Ratio 1.83 Ratio (1.60-3.17); Alkaline Phosphatase 50 U/L (41-126); Globulin 1.8 g/dL (1.6-3.3); Total Bilirubin 1.1 mg/dL (0.3-1.2); Total Protein 5.1 g/dL (6.2-8.2)
--- NOTE | 2024-06-01 11:56 | P.PN ---
Subjective Progress Note Date: 06/01/24 CHIEF COMPLAINT: Pancreatitis HISTORY OF PRESENT ILLNESS: Patient reports her abdominal pain has improved. She is tolerating diet. She had a bowel movement. She feels ready for discharge. Afebrile. WBC 4.36 Hgb 10.9 LFTs normal. No repeat lipase PHYSICAL EXAM: VITAL SIGNS: Reviewed. GENERAL: Well-developed in no acute distress. ABDOMEN: Soft. Nondistended. Nontender. NEUROLOGIC: Alert and oriented. Cranial nerves II through XII grossly intact. ASSESSMENT: 1. Pancreatitis with associated ileus resolved 2. History of cholecystectomy PLAN: -Patient can be discharged from surgical standpoint when medically cleared -Agree with advancing diet to low-fat Physician Anesthesiology Physician Assistant note has been reviewed by physician. Signing provider agrees with the documented findings, assessment, and plan of care. Attestation Patient seen and examined at bedside. Initially with abdominal pain and found to have pancreatitis. This has resolved. She is tolerating diet and having bowel function. Ileus also appears to be resolved. Patient with history of cholecystectomy. If tolerating diet, continue plan for discharge from surgical standpoint. Polly Dotson DO Objective - Vital Signs Vital signs: Vital Signs Temp 97.2 F L 06/01/24 07:31 Pulse 61 06/01/24 07:31 Resp 16 06/01/24 07:31 BP 116/70 06/01/24 07:31 Pulse Ox 95 06/01/24 07:31 FiO2 Intake & Output 05/31/24 06/01/24 06/01/24 18:59 06:59 18:59 Other: Voiding Method Toilet Toilet Toilet # Voids 4 3 - Labs CBC & Chem 7: 06/01/24 04:33 06/01/24 04:33 Labs: Abnormal Lab Results - Last 24 Hours (Table) 06/01/24 06/01/24 Range/Units 04:33 04:33 WBC 4.36 L (4.50-10.00) X 10*3/uL RBC 3.31 L (4.10-5.20) X 10*6/uL Hgb 10.9 L (12.0-15.0) g/dL Hct 31.5 L (37.2-46.3) % MCH 32.9 H (27.0-32.0) pg Carbon Dioxide 20.7 L (21.6-31.8) mmol/L Anion Gap 13.30 H (4.00-12.00) mmol/L BUN 5.3 L (9.0-27.0) mg/dL BUN/Creatinine Ratio 7.57 L (12.00-20.00) Ratio Total Protein 5.1 L (6.2-8.2) g/dL Albumin 3.3 L (3.8-4.9) g/dL
--- NOTE | 2024-06-01 16:00 | P.DS ---
Providers Date of admission: 05/29/24 20:53 Expected date of discharge: 06/01/24 Attending physician: Jemima Neri MD Consults: 05/30/24 09:30 Consult Physician Routine Consulting Provider: Polly Dotson Consult Reason/Comments: ileus Do you want consulting provider notified?: Yes Primary care physician: Marvel [facility] [place] Hospital Course: Discharge Diagnosis: Acute pancreatitis. Amylase was critical at 2365 and lipase was greater than 20,000. Triglycerides normal findings of 54.40. Abdominal ultrasound showing suspected cyst of inferior pole of right kidney and pancreatitis. CT abdomen and pelvis consistent with acute pancreatitis and showing mild focal ileus also present. Patient was placed on bowel rest and provided with vigorous IV fluid hydration. Diet was slowly advanced. She reported full resolution of abdominal pain/discomfort. Patient currently tolerating low-fat diet. IgG subclasses 1 through 4 pending and discussed with patient that these results can be followed up with at outpatient appointment with her refractory bricklayer, Dr. Conde. Patient medically stable for discharge at this time and to follow-up outpatient with PCP in 1 to [address] Conde, refractory bricklayer in 1 week. Incidental finding on CT showing mild ileus. Patient was evaluated by general surgery and cleared from their perspective for discharge. Ileus resolved as patient reports passing flatus and bowel movements without difficulties at this time. Hyperbilirubinemia. Resolved. Hypothyroidism. Continue daily medication regimen with levothyroxine 88 mcg d aily. Hospital Course: Patient is a 59-year-old female with a past medical history of hypothyroidism, gastroparesis, gastric sleeve, and previous cholecystectomy. She presented to the emergency department on 05/29/2024 with a chief complaint of abdominal pain. Upon arrival to our facility, patient underwent evaluation in the emergency department. Vital signs upon arrival show blood pressure 113/73, heart rate 65, respiratory rate 18, temp 97.5 F, and SpO2 of 95% on room air. Labs were completed and reviewed. CBC showing thrombocytopenia with platelet count of 130 otherwise normal findings. BMP unremarkable. Blood glucose 104. Initial lactic acid was elevated at 2.4. Liver profile revealed elevated total bili of 1.7 otherwise normal findings. Amylase was critical at 2365 and lipase was greater than 20,000. Urinalysis positive for blood and ketones but negative for infection. Abdominal ultrasound showing suspected cyst of inferior pole of right kidney and pancreatitis. CT abdomen and pelvis consistent with acute pancreatitis and showing mild focal ileus also present. Patient was evaluated by general surgery and cleared from their perspective for discharge. Ileus resolved as patient reports passing flatus and bowel movements without difficulties at this time. Underwent 3 night hospitalization for treatment of Acute pancreatitis. Patient was placed on bowel rest and provided with vigorous IV fluid hydration. Diet was slowly advanced. She reported full resolution of abdominal pain/discomfort. Patient currently tolerating low-fat diet. IgG subclasses 1 through 4 pending and discussed with patient that these results can be followed up with at outpatient appointment with her refractory bricklayer, Dr. Conde. Patient medically stable for discharge at this time and to follow-up outpatient with PCP in 1 to 2 days, general surgery in 2 weeks, and Dr. Conde, refractory bricklayer in 1 week. Physical exam: Vital signs reviewed and stable. General: Nontoxic, no distress and appears stated age. Derm: Skin warm and dry, normal coloration for ethnicity. Head: Atraumatic, normocephalic and symmetric. Eyes: EOM's intact, no lid lag, and anicteric sclera Mouth: no lip lesions, mucus membranes moist Cardiovascular: regular rate and rhythm with normal S1S2, no murmur, positive posterior tibial pulses bilaterally, and cap refill < 2 seconds. Lungs: Respirations even, regular, and unlabored on room air. Lungs CTA bilaterally, no rhonchi, no rales, no wheezing, and no accessory muscle usage. Abdominal: soft, mild tenderness right lower quadrant upon palpation, no guarding, no appreciable organomegaly Ext: ROM intact. No gross muscle atrophy, no edema, no contractures Neuro: Speech clear, face symmetrical and CN II-XII grossly intact with no noted focal neuro deficits Psych: Alert and oriented to person, place, time, and situation. Appropriate and pleasant affect. A total of 34 minutes of time were spent preparing this complex discharge summary. Pt was discharged on 06/01/2024 at 9:51 AM Patient was seen independently by Nurse Practitioner. This document was prepared using [employer] dictation software. Please allow for errors in corset fitter while rare they do occur. I reviewed the documentation as provided by the SAM above, who is the original author of this note. I agree with the documented assessment and plan, with the following changes: none Patient Condition at Discharge: Stable Plan - Discharge Summary New Discharge Prescriptions: Continue Levothyroxine Sodium [Synthroid] 88 mcg PO DAILY Discharge Medication List Levothyroxine Sodium [Synthroid] 88 mcg PO DAILY 03/31/20 [History] Follow up Appointment(s)/Referral(s): Marvel Ortiz MD [Primary Care Provider] - 1-2 days Brittany Gonsales MD [STAFF PHYSICIAN] - 06/08/24 8:15 am Herb Mcpherson DO [Medical Doctor] - 06/09/24 10:00 am (Patient will receive paperwork before appointment. Please fill it out and take it with you , bring insurance cards, ID and list of medications.) Patient Instructions/Handouts: Pancreatitis (DC), Ileus (DC) Activity/Diet/Wound Care/Special Instructions: Activity: As tolerated. Take breaks as needed. Diet: Low fat Diet. Special Instructions: Take all of your medications as directed and remember to keep all of your doctor's appointments and follow-up as needed. Thank you for allowing us to participate in your care, it was truly a pleasure having you for our patient!!! Discharge Disposition: HOME SELF-CARE
[2024-06-02 15:37] LABS: IgG Subclass 1 354.1 mg/dL (382.40-928.60); IgG Subclass 2 437.5 mg/dL (241.80-700.30); IgG Subclass 3 64.7 mg/dL (21.82-176.00); IgG Subclass 4 90.3 mg/dL (3.92-86.40)
== END 2024-06-01 11:50 | disposition home or self-care (01) | DRG 439 ==
LOC: EC 16:30 → 6NMEDSUR 20:53
PROVIDERS: ADMIT Internal Medicine; ATTEND Internal Medicine
DX: K85.90 Acute pancreatitis without necrosis or infection, unspecified (principal); K56.7 Ileus, unspecified; R17 Unspecified jaundice; D69.6 Thrombocytopenia, unspecified; K31.84 Gastroparesis; E03.9 Hypothyroidism, unspecified; Z79.890 Hormone replacement therapy; F17.210 Nicotine dependence, cigarettes, uncomplicated; Z98.84 Bariatric surgery status; Z90.49 Acquired absence of other specified parts of digestive tract; F17.290 Nicotine dependence, other tobacco product, uncomplicated
CPT/HCPCS: 36415; 74177; 76705; 80048; 80053; 80076; 81001; 82150; 82787; 83605; 83690; 83735; 84478; 85025; 85027; 85610; 85730; 96361; 96374; 96375; 96376; 99285

== ENCOUNTER → 2024-07-24 | Outpatient (CLI) | payer OTHER ==
--- NOTE | 2024-07-27 11:26 | MM ---
Reason for Exam: Screening (asymptomatic). Last mammogram was performed 1 year(s) and 1 month(s) ago. Patient History: Menarche at age 12. First Full-Term at age 21. Postmenopausal. Maternal grandmother had breast cancer. Paternal aunt had breast cancer at or over age 50. Risk Values: Xuan 5 year model risk: 1.2%. NCI Lifetime model risk: 6.7%. Prior Study Comparison: 03/03/2001 Bilateral Screening Mammogram, [facility]. 05/10/2006 Bilateral Diagnostic Mammogram, [facility]. 07/02/2023 Bilateral MG 3D screening mammo w/cad, [facility]. Tissue Density: There are scattered areas of fibroglandular density. Findings: Analyzed By CAD. Right breast: There is no suspicious group of microcalcifications or new suspicious mass. Left breast: There is no suspicious group of microcalcifications or new suspicious mass. Overall Assessment: Negative, BI-RAD 1 Management: Screening Mammogram of both breasts in [address] [facility] will attempt to contact patient to return for supplemental views and ultrasound if indicated. Patient should continue monthly self-breast exams. A clinical breast exam by your physician is recommended on an annual basis. This exam should not preclude additional follow-up of suspicious palpable abnormalities. Note on Xuan scores and lifetime risk: 1. A Xuan score greater than 3% is considered moderate risk. If this is the case, consider specialist referral to assess eligibility for a risk reducing agent. 2. If overall lifetime risk for the development of breast cancer is 20% or higher, the patient may qualify for future screening with alternating mammogram and breast MRI. [facility], , 07/27/2024 11:23 AM. Electronically signed and approved by: Jean-Paul Nguyen DO
== END | disposition home or self-care (01) ==
LOC: RADMAMWWP 08:24
PROVIDERS: ATTEND Family Medicine
DX: Z12.31 Encounter for screening mammogram for malignant neoplasm of breast (principal); Z78.0 Asymptomatic menopausal state; Z80.3 Family history of malignant neoplasm of breast; R92.323 Mammographic fibroglandular density, bilateral breasts
CPT/HCPCS: 77063; 77067

== ENCOUNTER 2025-03-04 19:26 | Inpatient (IN) | payer OTHER ==
[2025-03-04] MEDS: MORPHINE SULFATE 4 MG/ML SYRINGE IVP STA (20:29)
[2025-03-04] MEDS: ONDANSETRON 4 MG/2 ML VIAL IVP STA (20:31)
[2025-03-04] MEDS: SODIUM CHLORIDE 0.9% 1,000 ML IV ONE (20:31)
[2025-03-04 20:35] LABS: Basophils # (A) 0.03 10*3/uL (0.00-0.10); Basophils % (A) 0.3 %; Eosinophils # (A) 0.04 10*3/uL (0.04-0.35); Eosinophils % (A) 0.4 %; HCT 42.2 % (37.2-46.3); HGB 14.9 g/dL (12.0-15.0); Lymphocytes # (A) 3.92 10*3/uL (0.90-5.00); Lymphocytes % (A) 40.6 %; MCH 32.2 pg (27.0-32.0); MCHC 35.3 g/dL (32.0-37.0); MCV 91.1 fL (80.0-97.0); Monocytes # (A) 0.67 10*3/uL (0.20-1.00); Monocytes % (A) 6.9 %; Neutrophils # (A) 4.98 10*3/uL (1.80-7.70); Neutrophils % (A) 51.7 %; Platelet Count 304 10*3/uL (140-440); RBC 4.63 10*6/uL (4.10-5.20); RDW 12.0 % (11.5-14.5); WBC 9.65 10*3/uL (4.50-10.00)
[2025-03-04 20:46] LABS: INR 1.0 (<1.2); Partial Thromboplastin Time 22.1 sec (22.0-30.0); Prothrombin Time 10.7 sec (10.0-12.5)
[2025-03-04 20:50] LABS: ALT 15 U/L (4-34); AST 24 U/L (14-36); African American GFR (CKD) >90 (>60 ml/min/1.73 sqM); Albumin 4.5 g/dL (3.5-5.0); Alkaline Phosphatase 85 U/L (38-126); Anion Gap 12 mmol/L; Blood Urea Nitrogen 20 mg/dL (7-17); Calcium 10.3 mg/dL (8.4-10.2); Carbon Dioxide 20 mmol/L (22-30); Chloride 107 mmol/L (98-107); Glucose 114 mg/dL (74-99); Non-African American GFR(CKD) 81 (>60 ml/min/1.73 sqM); Potassium 4.0 mmol/L (3.5-5.1); Sodium 139 mmol/L (137-145); Total Protein 7.5 g/dL (6.3-8.2)
[2025-03-04 21:39] LABS: Amylase 2043 U/L (30-110)
[2025-03-04 21:40] LABS: Lipase >20000 U/L (23-300)
--- NOTE | 2025-03-04 22:03 | CT ---
EXAMINATION TYPE: CT abdomen pelvis w con DATE OF EXAM: 03/04/2025 9:38 PM COMPARISON: Previous CT abdomen/pelvis study 06/08/2024. CLINICAL INDICATION: Female, 60 years old with history of abdominal pain; Right/mid abdominal pain th at started today. Pt denies nausea, vomiting or diarrhea. hx of pancreatitis. TECHNIQUE: Axial CT abdomen pelvis w con;Sagittal and coronal reformats were created on a separate w orkstation. Contrast used:100 ml mL of Isovue 300 with IV Contrast, (none if empty) Oral contrast used: without Oral Contrast (none if empty) CT DLP: 1268.5 mGycm, Automated exposure control for dose reduction was used. FINDINGS: LOWER CHEST: Unremarkable ABDOMEN LIVER: Unremarkable GALLBLADDER AND BILE DUCTS: The gallbladder is surgically absent. PANCREAS: Diffuse peripancreatic fat stranding/acute inflammation. No evidence of pancreatic ductal d ilatation. No drainable peripancreatic fluid collection/abscess. There is questionable relative hypoe nhancement of the pancreatic neck, which appears similar to previous study 05/29/2024. No definite co nvincing evidence of pancreatic necrosis at this time. SPLEEN: Unremarkable. ADRENAL GLANDS: Unremarkable. KIDNEYS AND URETERS: No evidence of hydronephrosis or renal calculus. The ureters are unremarkable. Multiple bilateral renal cysts and additional subcentimeter hypodense lesions which are too small acc urately characterize. PELVIS BLADDER: No evidence for wall thickening or mass given limitations of exam. REPRODUCTIVE: Unremarkable. ABDOMEN & PELVIS STOMACH AND BOWEL: Previously gastrectomy. No evidence of bowel obstruction. PERITONEUM/RETROPERITONEUM: No evidence of pneumoperitoneum or free fluid. VASCULATURE: No evidence of aortic aneurysm. MUSCULOSKELETAL: No acute osseous abnormalities. Multilevel thoracolumbar spine degenerative changes. Retrolisthesis of L2 on L3. LYMPH NODES: No gross evidence for lymphadenopathy. SOFT TISSUE/ABDOMINAL WALL: Unremarkable IMPRESSION: Findings compatible with acute pancreatitis as described above. No drainable peripancreatic fluid col lection/abscess at this time. Recommend correlation with lipase values. [facility], , 03/04/2025 10:00 PM
[2025-03-04 22:27] LABS: Bilirubin,Urine Negative (Negative); Blood,Urine Negative (Negative); Color,Urine Colorless; Glucose,Urine (UA) Negative (Negative); Ketones,Urine Negative (Negative); Leukocyte Esterase,Urine Small (Negative); Mucus,Urine Rare /hpf; Nitrite,Urine Negative (Negative); PH, Urine 7.0 (5.0-8.0); Protein,Urine Negative (Negative); RBC,Urine 1 /hpf (0-5); Specific Gravity,Urine 1.036 (1.001-1.035); Urobilinogen,Urine <2.0 mg/dL (<2.0); WBC,Urine 2 /hpf (0-5)
[2025-03-04] MEDS ORDERED: NALOXONE 0.4 MG/ML 1 ML VIAL IV PRN (22:41)
[2025-03-04] MEDS ORDERED: ONDANSETRON 4 MG/2 ML VIAL IVP PRN (22:41)
[2025-03-04] MEDS ORDERED: MORPHINE SULFATE 4 MG/ML SYRINGE IV PRN (22:41)
[2025-03-04] MEDS: LACTATED RINGERS 1,000 ML IV SCH (22:42)
--- NOTE | 2025-03-04 22:43 | ED ---
Abdominal Pain HPI - General Chief Complaint: Abdominal Pain Stated Complaint: abd pain Time Seen by Provider: 03/04/25 19:50 Source: patient Mode of arrival: ambulatory Limitations: no limitations - History of Present Illness Initial Comments: 60-year-old female presenting with chief complaint of abdominal pain. Pain started today. It is a sharp pain in the right upper quadrant and epigastric region. Admits to nausea. No vomiting or diarrhea. Patient reports that she does have history of pancreatitis, she was told that it was associated with GLP- 1 use. She reports that 2 weeks ago she was restarted on a GLP-1. No chest pain or difficulty breathing. No fever or chills. No urinary symptoms. - Related Data Home Medications Medication Instructions Recorded Confirmed Levothyroxine Sodium [Synthroid] 88 mcg PO DAILY 03/31/20 05/29/24 Allergies Allergy/AdvReac Type Severity Reaction Status Date / Time No Known Allergies Allergy Verified 03/04/25 19:34 Review of Systems ROS Statement: Those systems with pertinent positive or pertinent negative responses have been documented in the HPI. ROS Other: All systems not noted in ROS Statement are negative. Past Medical History Past Medical History: Thyroid Disorder Additional Past Medical History / Comment(s): cholecystitis History of Any Multi-Drug Resistant Organisms: None Reported Past Surgical History: Bariatric Surgery, Cholecystectomy Additional Past Surgical History / Comment(s): gastric sleeve. COLONOSCOPY Past Anesthesia/Blood Transfusion Reactions: No Reported Reaction Past Psychological History: No Psychological Hx Reported Smoking Status: Vaper Past Alcohol Use History: Occasional Past Drug Use History: None Reported - Past Family History Mother Family Medical History: Cancer Additional Family Medical History / Comment(s): gastric cancer, Brother(s) Family Medical History: Diabetes Mellitus General Exam Limitations: no limitations General appearance: alert, in no apparent distress Head exam: Present: atraumatic, normocephalic, normal inspection Eye exam: Present: normal appearance, EOMI Neck exam: Present: normal inspection. Absent: meningismus Respiratory exam: Present: normal lung sounds bilaterally. Absent: respiratory distress, wheezes, rales, rhonchi, stridor Cardiovascular Exam: Present: regular rate, normal rhythm, normal heart sounds. Absent: systolic murmur, diastolic murmur, rubs, gallop, clicks GI/Abdominal exam: Present: soft, tenderness, guarding. Absent: distended, rebound, rigid Neurological exam: Present: alert, oriented X3 Psychiatric exam: Present: normal affect, normal mood Skin exam: Present: warm, dry, normal color Course Vital Signs 03/04/25 03/04/25 03/04/25 19:31 20:09 22:47 Temperature 98.1 F Pulse Rate 69 57 L 66 Respiratory 17 20 18 Rate Blood Pressure 107/68 125/79 109/67 O2 Sat by Pulse 100 99 98 Oximetry 03/05/25 03/05/25 00:12 01:17 Temperature 98.1 F Pulse Rate 79 68 Respiratory 19 19 Rate Blood Pressure 113/68 103/66 O2 Sat by Pulse 97 97 Oximetry Medical Decision Making - Medical Decision Making Was pt. sent in by a medical professional or institution (Dr. PA, INSTRUCTIONAL SUPPORT ASSISTANT, urgent care, hospital, or [place] [facility] care facility...) When possible be specific @ -No Did you speak to anyone other than the patient for history (EMS, parent, family, police, friend...)? What history was obtained from this source @ no Did you review nursing and triage notes (agree or disagree)? Why? @ -I reviewed and agree with nursing and triage notes Were old charts reviewed (outside hosp., previous admission, EMS record, old EKG, old radiological studies, urgent care reports/EKG's, [place] health care facility records)? Report findings @ -No old charts were reviewed Differential Diagnosis (chest pain, altered mental status, abdominal pain women, abdominal pain men, vaginal bleeding, weakness, fever, dyspnea, syncope, headache, dizziness, GI bleed, back pain, seizure, CVA, palpatations, mental health, musculoskeletal)? @ -MDM Differential Abdominal Pain Women: Appendicitis, Cholecystitis, diverticulosis, ischemic bowel, pancreatitis, hepatitis, UTI, gastroenteritis, AAA, incarcerated hernia, bowel obstruction, constipation, inflammatory bowel, hepatitis, peptic ulcer disease, splenic infarction, perforated viscus, vulvitis, ovarian torsion, PID, kidney stone, placenta abruption... This is not meant to be an all-inclusive list EKG interpreted by me (3pts min.). @ -EKG shows sinus rhythm ventricular at 65. QRS 82 QT 441 QTc 452 X-rays interpreted by me (1pt min.). @ -None done CT interpreted by me (1pt min.). @ -CT shows findings compatible with acute pancreatitis as described above. No drainable peripancreatic fluid collection/abscess at this time. Recommended correlation with lipase values U/S interpreted by me (1pt. min.). @ -None done What testing was considered but not performed or refused? (CT, X-rays, U/S, labs)? Why? @ -None What meds were considered but not given or refused? Why? @ -None Did you discuss the management of the patient with other professionals (professionals i.e. , PA, INSTRUCTIONAL SUPPORT ASSISTANT, lab, RT, psych nurse, web content & social media manager, sign writer letterer or painter, teacher, senior loan officer, bilingual case manager)? Give summary @ -Spoke with Dr. Neri who accepts admission Was smoking cessation discussed for >3mins.? @ -No Was critical care preformed (if so, how long)? @ -No Were there social determinants of health that impacted care today? How? (Homelessness, low income, unemployed, alcoholism, drug addiction, transportation, low edu. Level, literacy, decrease access to med. care, alf, rehab)? @ -No Was there de-escalation of care discussed even if they declined (Discuss DNR or withdrawal of care, Hospice)? DNR status @ -No What co-morbidities impacted this encounter? (DM, HTN, Smoking, COPD, CAD, Cancer, CVA, ARF, Chemo, Hep., AIDS, mental health diagnosis, sleep apnea, morbid obesity)? @ -None Was patient admitted / discharged? Hospital course, mention meds given and route, prescriptions, significant lab abnormalities, going to OR and other pertinent info. @ -60-year-old female presented with chief complaint of abdominal pain. History of pancreatitis. History and physical examination are conducted. No leukocytosis or anemia. Amylase 2043. Lipase over 20,000. Lactic acid 3.5. Patient is receiving lactated Ringer's. Negative troponin EKG shows no ST deviation. Urine shows no evidence of infection. CT shows evidence of panc reatitis with no drainable fluid collection or abscess. Patient reports that she has history of pancreatitis while on GLP-1. States that 8 weeks ago she was restarted on a GLP-1. Patient will require admission. She is agreeable with this plan. I discussed this case with my attending Dr. Lagos Undiagnosed new problem with uncertain prognosis? @ -No Drug Therapy requiring intensive monitoring for toxicity (Heparin, Nitro, Insulin, Cardizem)? @ -No Were any procedures done? @ -No Diagnosis/symptom? @ -Acute pancreatitis Acute, or Chronic, or Acute on Chronic? @ -Acute Uncomplicated (without systemic symptoms) or Complicated (systemic symptoms)? @ -complicated Side effects of treatment? @ -No Exacerbation, Progression, or Severe Exacerbation? @ -No Poses a threat to life or bodily function? How? (Chest pain, [place], [place], pneumonia, PE, COPD, DKA, ARF, appy, cholecystitis, CVA, Diverticulitis, Homicidal, Suicidal, threat to staff... and all critical care pts) @ -likely - Lab Data Result diagrams: 03/04/25 20:26 03/04/25 20:26 Lab Results 03/04/25 03/04/25 03/04/25 Range/Units 20:26 20:26 20:26 WBC 9.65 (4.50-10.00) 10*3/uL RBC 4.63 (4.10-5.20) 10*6/uL Hgb 14.9 (12.0-15.0) g/dL Hct 42.2 (37.2-46.3) % MCV 91.1 (80.0-97.0) fL MCH 32.2 H (27.0-32.0) pg MCHC 35.3 (32.0-37.0) g/dL Plt Count 304 (140-440) 10*3/uL MPV 9.4 L (9.5-12.2) fL Immature Gran % (Auto) 0.1 % Neutrophils % 51.7 % Lymphocytes % 40.6 % Monocytes % 6.9 % Eosinophils % 0.4 % Basophils % 0.3 % Immature Gran # 0.01 (0.00-0.04) 10*3/uL Neutrophils # 4.98 (1.80-7.70) 10*3/uL Lymphocytes # 3.92 (0.90-5.00) 10*3/uL Monocytes # 0.67 (0.20-1.00) 10*3/uL Eosinophils # 0.04 (0.04-0.35) 10*3/uL Basophils # 0.03 (0.00-0.10) 10*3/uL PT 10.7 (10.0-12.5) sec INR 1.0 (<1.2) APTT 22.1 (22.0-30.0) sec Sodium 139 (137-145) mmol/L Potassium 4.0 (3.5-5.1) mmol/L Chloride 107 (98-107) mmol/L Carbon Dioxide 20 L (22-30) mmol/L Anion Gap 12 mmol/L BUN 20 H (7-17) mg/dL Creatinine 0.80 (0.52-1.04) mg/dL Est GFR (CKD-EPI)AfAm >90 (>60 ml/min/1.73 sqM) Est GFR (CKD-EPI)NonAf 81 (>60 ml/min/1.73 sqM) Glucose 114 H (74-99) mg/dL Lactic Ac Sepsis Rflx Plasma Lactic Acid Moiz (0.7-2.0) mmol/L Calcium 10.3 H (8.4-10.2) mg/dL Total Bilirubin 0.8 (0.2-1.3) mg/dL AST 24 (14-36) U/L ALT 15 (4-34) U/L Alkaline Phosphatase 85 (38-126) U/L Troponin I (0.000-0.034) ng/mL Total Protein 7.5 (6.3-8.2) g/dL Albumin 4.5 (3.5-5.0) g/dL Amylase 2043 H* (30-110) U/L Lipase >70624 H (23-300) U/L Urine Color Urine Appearance (Clear) Urine pH (5.0-8.0) Ur Specific [place] (1.001-1.035) Urine Protein (Negative) Urine Glucose (UA) (Negative) Urine Ketones (Negative) Urine Blood (Negative) Urine Nitrite (Negative) Urine Bilirubin (Negative) Urine Urobilinogen (<2.0) mg/dL Ur Leukocyte Esterase (Negative) Urine RBC (0-5) /hpf Urine WBC (0-5) /hpf Urine Mucus (None) /hpf 03/04/25 03/04/25 03/04/25 Range/Units 20:26 20:26 21:42 WBC (4.50-10.00) 10*3/uL RBC (4.10-5.20) 10*6/uL Hgb (12.0-15.0) g/dL Hct (37.2-46.3) % MCV (80.0-97.0) fL MCH (27.0-32.0) pg MCHC (32.0-37.0) g/dL Plt Count (140-440) 10*3/uL MPV (9.5-12.2) fL Immature Gran % (Auto) % Neutrophils % % Lymphocytes % % Monocytes % % Eosinophils % % Basophils % % Immature Gran # (0.00-0.04) 10*3/uL Neutrophils # (1.80-7.70) 10*3/uL Lymphocytes # (0.90-5.00) 10*3/uL Monocytes # (0.20-1.00) 10*3/uL Eosinophils # (0.04-0.35) 10*3/uL Basophils # (0.00-0.10) 10*3/uL PT (10.0-12.5) sec INR (<1.2) APTT (22.0-30.0) sec Sodium (137-145) mmol/L Potassium (3.5-5.1) mmol/L Chloride (98-107) mmol/L Carbon Dioxide (22-30) mmol/L Anion Gap mmol/L BUN (7-17) mg/dL Creatinine (0.52-1.04) mg/dL Est GFR (CKD-EPI)AfAm (>60 ml/min/1.73 sqM) Est GFR (CKD-EPI)NonAf (>60 ml/min/1.73 sqM) Glucose (74-99) mg/dL Lactic Ac Sepsis Rflx Y Plasma Lactic Acid Moiz 3.5 H* (0.7-2.0) mmol/L Calcium (8.4-10.2) mg/dL Total Bilirubin (0.2-1.3) mg/dL AST (14-36) U/L ALT (4-34) U/L Alkaline Phosphatase (38-126) U/L Troponin I <0.012 (0.000-0.034) ng/mL Total Protein (6.3-8.2) g/dL Albumin (3.5-5.0) g/dL Amylase (30-110) U/L Lipase (23-300) U/L Urine Color Urine Appearance (Clear) Urine pH (5.0-8.0) Ur Specific [place] (1.001-1.035) Urine Protein (Negative) Urine Glucose (UA) (Negative) Urine Ketones (Negative) Urine Blood (Negative) Urine Nitrite (Negative) Urine Bilirubin (Negative) Urine Urobilinogen (<2.0) mg/dL Ur Leukocyte Esterase (Negative) Urine RBC (0-5) /hpf Urine WBC (0-5) /hpf Urine Mucus (None) /hpf 03/04/25 Range/Units 22:11 WBC (4.50-10.00) 10*3/uL RBC (4.10-5.20) 10*6/uL Hgb (12.0-15.0) g/dL Hct (37.2-46.3) % MCV (80.0-97.0) fL MCH (27.0-32.0) pg MCHC (32.0-37.0) g/dL Plt Count (140-440) 10*3/uL MPV (9.5-12.2) fL Immature Gran % (Auto) % Neutrophils % % Lymphocytes % % Monocytes % % Eosinophils % % Basophils % % Immature Gran # (0.00-0.04) 10*3/uL Neutrophils # (1.80-7.70) 10*3/uL Lymphocytes # (0.90-5.00) 10*3/uL Monocytes # (0.20-1.00) 10*3/uL Eosinophils # (0.04-0.35) 10*3/uL Basophils # (0.00-0.10) 10*3/uL PT (10.0-12.5) sec INR (<1.2) APTT (22.0-30.0) sec Sodium (137-145) mmol/L Potassium (3.5-5.1) mmol/L Chloride (98-107) mmol/L Carbon Dioxide (22-30) mmol/L Anion Gap mmol/L BUN (7-17) mg/dL Creatinine (0.52-1.04) mg/dL Est GFR (CKD-EPI)AfAm (>60 ml/min/1.73 sqM) Est GFR (CKD-EPI)NonAf (>60 ml/min/1.73 sqM) Glucose (74-99) mg/dL Lactic Ac Sepsis Rflx Plasma Lactic Acid Moiz (0.7-2.0) mmol/L Calcium (8.4-10.2) mg/dL Total Bilirubin (0.2-1.3) mg/dL AST (14-36) U/L ALT (4-34) U/L Alkaline Phosphatase (38-126) U/L Troponin I (0.000-0.034) ng/mL Total Protein (6.3-8.2) g/dL Albumin (3.5-5.0) g/dL Amylase (30-110) U/L Lipase (23-300) U/L Urine Color Colorless Urine Appearance Clear (Clear) Urine pH 7.0 (5.0-8.0) Ur Specific [place] 1.036 H (1.001-1.035) Urine Protein Negative (Negative) Urine Glucose (UA) Negative (Negative) Urine Ketones Negative (Negative) Urine Blood Negative (Negative) Urine Nitrite Negative (Negative) Urine Bilirubin Negative (Negative) Urine Urobilinogen <2.0 (<2.0) mg/dL Ur Leukocyte Esterase Small H (Negative) Urine RBC 1 (0-5) /hpf Urine WBC 2 (0-5) /hpf Urine Mucus Rare H (None) /hpf Disposition Clinical Impression: Acute pancreatitis Disposition: ADMITTED IP TO THIS HOSP Condition: Fair Time of Disposition: 22:43
[2025-03-05] MEDS: LACTATED RINGERS 1,000 ML IV SCH (00:09)
--- NOTE | 2025-03-05 02:21 | P.HPIM ---
History of Present Illness H&P Date: 03/04/25 Chief Complaint: Pancreatitis 60 year old female with hypothyroid and history of pancreatitis Patient presents with recurrent pancreatitis. She injected tirzepatide (Zepboun d) on Saturday and began feeling that something was "off" today, though initially without pain. Patient has a history of pancreatitis in April related to a compounded GLP-1 medication, which she suspects had purity issues. She is currently using the brand name Zepbound (tirzepatide) at the lowest dosage. Patient denies nausea, vomiting, and diarrhea. She reports only mild pain currently and brought herself to the emergency department because she recognized the symptoms and did not want to experience another severe episode. Patient vapes and drinks alcohol occasionally. Living situation and occupation not documented. family history Patient has a 45-year-old cousin who is currently dying from pancreatic cancer, which causes her significant anxiety about her own pancreatic condition. Review of systems All systems reviewed with pertinent positive negatives as per HPI Gastrointestinal: Denies nausea, vomiting, and diarrhea Constitutional: Reports feeling that something was "off" initially, now with mild pain on exam Constitutional: No acute distress, conversant, pleasant Eyes: Anicteric sclerae, moist conjunctiva, Pupils equal round reactive to light ENMT: NC/AT Oropharynx clear, no erythema, or exudates Neck: Supple, no masses, or JVD No carotid bruits No thyromegaly Lungs: Clear to auscultation Clear to percussion Normal respiratory effort, no accessory muscle use Cardiovascular: Heart regular in rate and rhythm, No murmurs, gallops, or rubs No peripheral edema Abdominal: Soft epigastric tenderness, no guarding, rebound or rigidity Abdomen moving with respiration Extremities: No digital cyanosis No clubbing Pedal pulses intact and symmetrical Radial pulses intact and symmetrical No calf tenderness Psychiatric: Alert and oriented to person, place and time Appropriate affect fair judgement Neuro Muscles Strength 5/5 in all 4 extremities Sensation to light touch grossly present throughout Cranial nerves II-XII grossly intact Past Medical History Past Medical History: Thyroid Disorder Additional Past Medical History / Comment(s): cholecystitis History of Any Multi-Drug Resistant Organisms: None Reported Past Surgical History: Bariatric Surgery, Cholecystectomy Additional Past Surgical History / Comment(s): gastric sleeve. COLONOSCOPY Past Anesthesia/Blood Transfusion Reactions: No Reported Reaction Past Psychological History: No Psychological Hx Reported Smoking Status: Former smoker Past Alcohol Use History: Occasional Additional Past Alcohol Use History / Comment(s): QUIT SMOKING 2021 Past Drug Use History: None Reported - Past Family History Mother Family Medical History: Cancer Additional Family Medical History / Comment(s): gastric cancer, Brother(s) Family Medical History: Diabetes Mellitus Medications and Allergies Home Medications Medication Instructions Recorded Confirmed Type Levothyroxine Sodium [Synthroid] 88 mcg PO DAILY 03/31/20 05/29/24 History Allergies Allergy/AdvReac Type Severity Reaction Status Date / Time No Known Allergies Allergy Verified 03/04/25 19:34 Physical Exam Vitals: Vital Signs Temp Pulse Pulse Resp BP BP Pulse Ox 03/05/25 02:04 98.4 F 70 16 106/65 97 03/05/25 01:17 98.1 F 68 19 103/66 97 03/05/25 00:12 79 19 113/68 97 03/04/25 22:47 66 18 109/67 98 03/04/25 20:09 57 L 20 125/79 99 03/04/25 19:31 98.1 F 69 17 107/68 100 Intake and Output 03/04/25 03/04/25 03/05/25 14:59 22:59 06:59 Other: Weight 81.647 kg 81.647 kg Results CBC & Chem 7: 03/04/25 20:26 03/04/25 20:26 Labs: Abnormal Lab Results - Last 24 Hours (Table) 03/04/25 03/04/25 03/04/25 Range/Units 20:26 20:26 20:26 MCH 32.2 H (27.0-32.0) pg MPV 9.4 L (9.5-12.2) fL Carbon Dioxide 20 L (22-30) mmol/L BUN 20 H (7-17) mg/dL Glucose 114 H (74-99) mg/dL Plasma Lactic Acid Moiz 3.5 H* (0.7-2.0) mmol/L Calcium 10.3 H (8.4-10.2) mg/dL Amylase 2043 H* (30-110) U/L Lipase >67167 H (23-300) U/L Ur Specific [place] (1.001-1.035) Ur Leukocyte Esterase (Negative) Urine Mucus (None) /hpf 03/04/25 Range/Units 22:11 MCH (27.0-32.0) pg MPV (9.5-12.2) fL Carbon Dioxide (22-30) mmol/L BUN (7-17) mg/dL Glucose (74-99) mg/dL Plasma Lactic Acid Moiz (0.7-2.0) mmol/L Calcium (8.4-10.2) mg/dL Amylase (30-110) U/L Lipase (23-300) U/L Ur Specific [place] 1.036 H (1.001-1.035) Ur Leukocyte Esterase Small H (Negative) Urine Mucus Rare H (None) /hpf Assessment and Plan Assessment: Patient presenting with acute recurrent pancreatitis, suspected to be secondary to GLP-1 medication (tirzepatide). # Acute recurrent pancreatitis, suspected secondary to GLP-1 medications: - Lipase level >20,000, amylase 2,043 - Lactic acid elevated at 3.5, calcium 2.3 - Plan: Strict NPO, aggressive IV fluid hydration with 2 liters saline boluses completed, continue lactated Ringer at 130 cc/hour - Pain control with IV morphine 4 mg every 3 hours as needed - Antiemetic therapy with Zofran 4 mg IV every 8 hours as needed - Check triglyceride level and IgG4 - Abdominal ultrasound to rule out gallstones # Hypothyroidism: - Resume levothyroxine - Check TSH # DVT prophylaxis: - Lovenox 40 mg subcutaneous daily # GI prophylaxis: - Pepcid 20 mg PO daily
[2025-03-05] MEDS: LACTATED RINGERS 1,000 ML IV ONE (05:46)
[2025-03-05] MEDS: HYDROmorphone 0.5 MG/0.5 ML SYRINGE IVP PRN (06:31)
[2025-03-05] MEDS: FAMOTIDINE 20 MG TAB PO SCH (07:57)
[2025-03-05] MEDS: ENOXAPARIN 40 MG/0.4 ML SYRINGE SQ SCH (07:58)
[2025-03-05 08:20] LABS: Basophils # (A) 0.03 X 10*3/uL (0.00-0.10); Basophils % (A) 0.4 %; Eosinophils # (A) 0.07 X 10*3/uL (0.04-0.35); Eosinophils % (A) 0.9 %; HCT 35.7 % (37.2-46.3); HGB 11.7 g/dL (12.0-15.0); Immature Grans, Automated 0.30 %; Lymphocytes # (A) 2.03 X 10*3/uL (0.90-5.00); Lymphocytes % (A) 25.4 %; MCH 31.6 pg (27.0-32.0); MCHC 32.8 g/dL (32.0-37.0); MCV 96.5 FL (80.0-97.0); Monocytes # (A) 0.51 X 10*3/uL (0.20-1.00); Monocytes % (A) 6.4 %; NRBC Per 100 WBC 0 X 10*3/uL (0.00-0.01); Neutrophils # (A) 5.34 X 10*3/uL (1.80-7.70); Neutrophils % (A) 66.6 %; Platelet Count 212 X 10*3/uL (140-440); RBC 3.70 X 10*6/uL (4.10-5.20); RDW 12.4 % (11.5-14.5); WBC 8.00 X 10*3/uL (4.50-10.00)
[2025-03-05 08:22] LABS: ALT 12 U/L (8-44); AST 19 U/L (13-35); Albumin 3.3 g/dL (3.8-4.9); Albumin/Globulin Ratio 1.50 Ratio (1.60-3.17); Alkaline Phosphatase 61 U/L (41-126); Anion Gap 8.70 mmol/L (4.00-12.00); BUN/Creat Ratio 18.88 Ratio (12.00-20.00); Blood Urea Nitrogen 15.1 mg/dL (9.0-27.0); Calcium 9.1 mg/dL (8.7-10.3); Carbon Dioxide 25.3 mmol/L (21.6-31.8); Chloride 107 mmol/L (96-109); Globulin 2.2 g/dL (1.6-3.3); Glucose 82 mg/dL (70-110); Potassium 4.5 mmol/L (3.5-5.5); Sodium 141 mmol/L (135-145); Total Protein 5.5 g/dL (6.2-8.2)
--- NOTE | 2025-03-05 08:53 | US ---
EXAMINATION TYPE: US liver DATE OF EXAM: 03/05/2025 COMPARISON: CT 03/04/2025 CLINICAL INDICATION: Female, 60 years old with Hx of pancreatitis TECHNIQUE: Grayscale and color Doppler imaging of the right upper quadrant was performed. FINDINGS: EXAM MEASUREMENTS: Liver Length: 17.4 cm Gallbladder: Surgically absent CBD: 0.62 cm Right Kidney: 10.2 x 4.2 x 5.3 cm SEAM STAY STITCHER NOTES: Exam limited by bowel gas Pancreas: Heterogeneous appearance. Pancreatic tail obscured by bowel gas shadowing. No caitlyn peripa ncreatic fluid collection. Liver: wnl, upper limits in size Gallbladder: Surgically absent Evidence for sonographic Fish's sign: no CBD: Borderline size. Right Kidney: 3.0 cm lower pole cyst again seen. No hydronephrosis. IMPRESSION: 1. Heterogeneous appearance to the visualized portions of the pancreas in keeping with patient's acut e interstitial pancreatitis seen on CT. No fluid collection appreciated by ultrasound. 2. Bile duct upper limits of normal in caliber, likely due to postcholecystectomy status and patient' s age. [facility], Workstation: [id number] DiagnosticsCAROL, 03/05/2025 8:51 AM
[2025-03-05] MEDS: LEVOTHYROXINE 88 MCG TAB PO SCH (10:31)
[2025-03-05] MEDS: ACETAMINOPHEN TAB 325 MG TAB PO PRN (13:34)
[2025-03-05] MEDS: HYDROcodone/APAP 5-325MG 1 EACH TAB PO PRN (14:45)
--- NOTE | 2025-03-05 15:33 | P.PN ---
Subjective Progress Note Date: 03/05/25 Hospital course: Patient is a pleasant 60-year-old female with a past medical history of pancre atitis, bariatric surgery with previous gastric sleeve, cholecystectomy, and hypothyroidism. She presented to the hospital on 02/28/2025 secondary to epigastric pain and nausea. Patient reported history of pancreatitis in the past when she was previously on a GLP-1 and reports she was again restarted on GLP-1 Zepbound last week and pain is similar to previous episode of pancreatitis. Upon arrival at her facility, patient underwent evaluation in the emergency department. Vital signs upon arrival show blood pressure 107/68, heart rate 69, respiratory rate 17, temp 98.1 F, and SpO2 of 100% on room air. EKG completed showing sinus rhythm at 65 bpm. Labs completed and reviewed. CBC showing elevated MCH of 32.3 and low MPV of 9.4. Coagulation profile normal findings. BMP showing high anion gap metabolic acidosis with chloride of 107, bicarb of 20, and anion gap of 12. BUN elevated at 20. Blood glucose 114. Lactic acid 3.5. Calcium elevated at 10.3. Liver profile unremarkable. Troponin negative at less than 0 Liverel's .012. Amylase 2043 and lipase greater than 20,000. Urinalysis negative for infection. CT abdomen and pelvis showing findings compatible with acute pancreatitis with no drainable pancreatic fluid collection or abscess reported. Patient admitted under services at this time. Liver ultrasound showing heterogeneous appearance to the visualized portions of the pancreas in keeping with patient's acute interstitial pancreatitis seen on CT, again reporting no fluid collection appreciated by ultrasound and bile ducts upper limits of normal in caliber likely due to postcholecystectomy status and patient's age. Physical exam: Patient seen full evaluated at bedside this morning. She reports significant epigastric pain remains. She reports her nausea is currently controlled and reports having a mild headache. Orders placed for Tylenol and [place] in addition to Dilaudid patient has been using for treatment of her pain resulting from her pancreatitis. Will advance diet to clear liquids and monitor how patient tolerates, if pain worsens or nausea returns will resume patient back on strict n.p.o. status. Vital signs reviewed and stable. General: Nontoxic, no distress and appears stated age. Derm: Skin warm and dry, normal coloration for ethnicity. Head: Atraumatic, normocephalic and symmetric. Eyes: EOM's intact, no lid lag, and anicteric sclera Mouth: no lip lesions, mucus membranes moist Cardiovascular: regular rate and rhythm with normal S1S2, no murmur, positive posterior tibial pulses bilaterally, and cap refill < 2 seconds. Lungs: Respirations even, regular, and unlabored on room air. Lungs CTA bilaterally, no rhonchi, no rales, no wheezing, and no accessory muscle usage. Abdominal: soft, tenderness upon palpation to epigastric region. No guarding, no appreciable organomegaly Ext: ROM intact. No gross muscle atrophy, no edema, no contractures Neuro: Speech clear, face symmetrical and CN II-XII grossly intact with no noted focal neuro deficits Psych: Alert and oriented to person, place, time, and situation. Appropriate and pleasant affect. Assessment and Plan of Care: Acute pancreatitis, recurrent episodes Lactic acidosis Hypercalcemia High anion gap metabolic acidosis - Strongly recommend avoidance of GLP-1 use in the future. -Continue aggressive IV fluid hydration with lactated Ringer's at 130 cc/h -Symptomatic care and pain management with Tylenol 650 mg every 6 hours as needed for mild pain/fever, [place] 5/325 mg tablets every 4 hours as needed for moderate pain, and Dilaudid 0.5 mg every 3 hours as needed for severe pain. -Zofran 4 mg IVP every 8 hours as needed for nausea or vomiting. -Clear liquid diet. -Pepcid 20 mg daily. - Hypercalcemia resolved with initial calcium of 10.3 and repeat calcium of 9.1 after IV fluid hydration. -Lactic acidosis resolved with initial lactate of 3.5 and after IV fluid bolus repeat lactate of 1.5. - Follow-up on triglyceride level and IgG. - Recommend outpatient follow-up with sustainability manager after discharge secondary to recurrent episodes of pancreatitis. Hypothyroidism -Continue levothyroxine 88 mcg daily. Data and imaging reviewed: Liver ultrasound completed and radiology report reviewed showing heterogeneous appearance to the visualized portions of the pancreas in keeping with patient's acute interstitial pancreatitis seen on CT, again reporting no fluid collection appreciated by ultrasound and bile ducts upper limits of normal in caliber likely due to postcholecystectomy status and patient's age.Morning labs reviewed. CBC showing mild Morning labs reviewed. CBC showing normocytic anemia with hemoglobin of 11.7. BMP unremarkable. Blood glucose 82. Repeat lactic acid was 1.5. Liver profile unremarkable with the exception of low albumin of 3.3 and total protein of 5.5. Vital signs reviewed. Blood pressure this morning at 90/53, heart rate 61, respiratory rate 16, temp 97.8 F, and SpO2 100% on room air. CODE STATUS: Full code DVT prophylaxis: Lovenox Anticipated discharge date: Pending clinical course Anticipated discharge place: Home Patient was seen independently by Nurse Pracitioner. This document was prepared using [employer] dictation software. Please allow for errors in wet finisher, while rare they do occur. Deejay Easton NP rendered care for this patient independently, reviewed the findings and plan as documented in the note above and agree with plan. I did not physically speak with or examine the patient on this date. Objective - Vital Signs Vital signs: Vital Signs Temp 97.8 F 03/05/25 07:36 Pulse 61 03/05/25 07:36 Resp 16 03/05/25 07:36 BP 90/53 03/05/25 07:36 Pulse Ox 100 03/05/25 07:36 FiO2 Intake & Output 03/04/25 03/05/25 03/05/25 18:59 06:59 18:59 Intake Total 0 Balance 0 Weight 81.647 kg Intake: Oral 0 Other: # Voids 2 - Labs CBC & Chem 7: 03/05/25 04:37 03/05/25 04:37 Labs: Abnormal Lab Results - Last 24 Hours (Table) 03/04/25 03/04/25 03/04/25 Range/Units 20:26 20:26 20:26 RBC (4.10-5.20) X 10*6/uL Hgb (12.0-15.0) g/dL Hct (37.2-46.3) % MCH 32.2 H (27.0-32.0) pg MPV 9.4 L (9.5-12.2) fL Carbon Dioxide 20 L (22-30) mmol/L BUN 20 H (7-17) mg/dL Glucose 114 H (74-99) mg/dL Plasma Lactic Acid Moiz 3.5 H* (0.7-2.0) mmol/L Calcium 10.3 H (8.4-10.2) mg/dL Total Protein (6.2-8.2) g/dL Albumin (3.8-4.9) g/dL Albumin/Globulin Ratio (1.60-3.17) Ratio Amylase 2043 H* (30-110) U/L Lipase >43999 H (23-300) U/L Ur Specific [place] (1.001-1.035) Ur Leukocyte Esterase (Negative) Urine Mucus (None) /hpf 03/04/25 03/05/25 03/05/25 Range/Units 22:11 04:37 04:37 RBC 3.70 L (4.10-5.20) X 10*6/uL Hgb 11.7 L (12.0-15.0) g/dL Hct 35.7 L (37.2-46.3) % MCH (27.0-32.0) pg MPV (9.5-12.2) fL Carbon Dioxide (22-30) mmol/L BUN (7-17) mg/dL Glucose (74-99) mg/dL Plasma Lactic Acid Mo[place] (0.7-2.0) mmol/L Calcium (8.4-10.2) mg/dL Total Protein 5.5 L (6.2-8.2) g/dL Albumin 3.3 L (3.8-4.9) g/dL Albumin/Globulin Ratio 1.50 L (1.60-3.17) Ratio Amylase (30-110) U/L Lipase (23-300) U/L Ur Specific [place] 1.036 H (1.001-1.035) Ur Leukocyte Esterase Small H (Negative) Urine Mucus Rare H (None) /hpf
[2025-03-06 07:23] VITALS: RESP 18
[2025-03-06 10:00] LABS: HCT 36.4 % (37.2-46.3); HGB 12.2 g/dL (12.0-15.0); MCH 32.4 pg (27.0-32.0); MCHC 33.5 g/dL (32.0-37.0); MCV 96.8 FL (80.0-97.0); NRBC Per 100 WBC 0 X 10*3/uL (0.00-0.01); Platelet Count 216 X 10*3/uL (140-440); RBC 3.76 X 10*6/uL (4.10-5.20); RDW 12.3 % (11.5-14.5); WBC 5.49 X 10*3/uL (4.50-10.00)
[2025-03-06 10:41] LABS: Magnesium 1.6 mg/dL (1.5-2.4)
[2025-03-06 10:52] LABS: ALT 11 U/L (8-44); AST 18 U/L (13-35); Albumin 3.5 g/dL (3.8-4.9); Albumin/Globulin Ratio 2.06 Ratio (1.60-3.17); Alkaline Phosphatase 65 U/L (41-126); Anion Gap 10.70 mmol/L (4.00-12.00); BUN/Creat Ratio 11.86 Ratio (12.00-20.00); Blood Urea Nitrogen 8.3 mg/dL (9.0-27.0); Calcium 8.9 mg/dL (8.7-10.3); Carbon Dioxide 24.3 mmol/L (21.6-31.8); Chloride 108 mmol/L (96-109); Globulin 1.7 g/dL (1.6-3.3); Glucose 78 mg/dL (70-110); Potassium 4.1 mmol/L (3.5-5.5); Sodium 143 mmol/L (135-145); Total Protein 5.2 g/dL (6.2-8.2)
--- NOTE | 2025-03-06 15:39 | P.PN ---
Subjective Progress Note Date: 03/06/25 Hospital course: Patient is a pleasant 60-year-old female with a past medical history of pancre atitis, bariatric surgery with previous gastric sleeve, cholecystectomy, and hypothyroidism. She presented to the hospital on 02/28/2025 secondary to epigastric pain and nausea. Patient reported history of pancreatitis in the past when she was previously on a GLP-1 and reports she was again restarted on GLP-1 Zepbound last week and pain is similar to previous episode of pancreatitis. Upon arrival at her facility, patient underwent evaluation in the emergency department. Vital signs upon arrival show blood pressure 107/68, heart rate 69, respiratory rate 17, temp 98.1 F, and SpO2 of 100% on room air. EKG completed showing sinus rhythm at 65 bpm. Labs completed and reviewed. CBC showing elevated MCH of 32.3 and low MPV of 9.4. Coagulation profile normal findings. BMP showing high anion gap metabolic acidosis with chloride of 107, bicarb of 20, and anion gap of 12. BUN elevated at 20. Blood glucose 114. Lactic acid 3.5. Calcium elevated at 10.3. Liver profile unremarkable. Troponin negative at less than 0 Liverel's .012. Amylase 2043 and lipase greater than 20,000. Urinalysis negative for infection. CT abdomen and pelvis showing findings compatible with acute pancreatitis with no drainable pancreatic fluid collection or abscess reported. Patient admitted under services at this time. Liver ultrasound showing heterogeneous appearance to the visualized portions of the pancreas in keeping with patient's acute interstitial pancreatitis seen on CT, again reporting no fluid collection appreciated by ultrasound and bile ducts upper limits of normal in caliber likely due to postcholecystectomy status and patient's age. Physical exam: Patient seen full evaluated at bedside this morning. She reports pain has resolved and denies having any nausea, or vomiting. She states she is tolerating a clear liquid diet and denies having any new complaints or concerns at this time Vital signs reviewed and stable. General: Nontoxic, no distress and appears stated age. Derm: Skin warm and dry, normal coloration for ethnicity. Head: Atraumatic, normocephalic and symmetric. Eyes: EOM's intact, no lid lag, and anicteric sclera Mouth: no lip lesions, mucus membranes moist Cardiovascular: regular rate and rhythm with normal S1S2, no murmur, positive posterior tibial pulses bilaterally, and cap refill < 2 seconds. Lungs: Respirations even, regular, and unlabored on room air. Lungs CTA bilaterally, no rhonchi, no rales, no wheezing, and no accessory muscle usage. Abdominal: soft, tenderness upon palpation to epigastric region. No guarding, no appreciable organomegaly Ext: ROM intact. No gross muscle atrophy, no edema, no contractures Neuro: Speech clear, face symmetrical and CN II-XII grossly intact with no noted focal neuro deficits Psych: Alert and oriented to person, place, time, and situation. Appropriate and pleasant affect. Assessment and Plan of Care: Acute pancreatitis, recurrent episodes Lactic acidosis Hypercalcemia High anion gap metabolic acidosis - Strongly recommend avoidance of GLP-1 use in the future. - Continue aggressive IV fluid hydration with lactated Ringer's at 130 cc/h, if patient tolerates advancement of diet will discontinue fluids. - Symptomatic care and pain management with Tylenol 650 mg every 6 hours as needed for mild pain/fever, [place] 5/325 mg tablets every 4 hours as needed for moderate pain, and Dilaudid 0.5 mg every 3 hours as needed for severe pain. - Zofran 4 mg IVP every 8 hours as needed for nausea or vomiting. - Advance to full liquid diet - Pepcid 20 mg daily. - Hypercalcemia resolved with initial calcium of 10.3 and repeat calcium of 9.1 after IV fluid hydration. - Lactic acidosis resolved with initial lactate of 3.5 and after IV fluid bolus repeat lactate of 1.5. - Triglyceride level normal finding at 53.10 - Recommend outpatient follow-up with nuclear powerplant supervisor after discharge secondary to recurrent episodes of pancreatitis. Hypomagnesemia Magnesium 1.6. Orders placed for magnesium sulfate 2 g IVPB. Will monitor for resolution. Hypothyroidism -Continue levothyroxine 88 mcg daily. Data and imaging reviewed: Morning labs reviewed. CBC unremarkable with WBC count of 5.49, hemoglobin of 12.2, platelet count of 216. BMP normal findings. Blood glucose 78. Magnesium low at 1.6. Liver profile unremarkable with exception of low total protein of 5.2 and hypoalbuminemia with albumin of 3.5. Vital signs reviewed. Blood pressure 100/64, heart rate 70, respiratory rate 1 8, temp 97.9 F, and SpO2 of 96% on room air. CODE STATUS: Full code DVT prophylaxis: Lovenox Anticipated discharge date: Pending clinical course Anticipated discharge place: Home Patient was seen independently by Nurse Pracitioner. This document was prepared using [employer] dictation software. Please allow for errors in corporate legal intern, while rare they do occur. Deejay Easton NP rendered care for this patient independently, reviewed the findings and plan as documented in the note above and agree with plan. I did not physically speak with or examine the patient on this date. Objective - Vital Signs Vital signs: Vital Signs Temp 97.9 F 03/06/25 07:00 Pulse 70 03/06/25 07:00 Resp 18 03/06/25 07:00 BP 100/64 03/06/25 07:00 Pulse Ox 96 03/06/25 07:00 FiO2 Intake & Output 03/05/25 03/06/25 03/06/25 18:59 06:59 18:59 Intake Total 540 Balance 540 Intake: Oral 540 Other: # Voids 2 1 - Labs CBC & Chem 7: 03/06/25 04:24 03/06/25 04:24 Labs: Abnormal Lab Results - Last 24 Hours (Table) 03/05/25 Range/Units 04:37 IgG1 326.10 L (382.40-928.60) mg/dL
[2025-03-06] MEDS: MAGNESIUM SULFATE-D5W PMX 1 GM in DEXTROSE/WATER 1 100ML.BAG IVPB SCH (16:54)
[2025-03-07 07:46] VITALS: BP 99/64; PULSE 58; TEMP 98.5
[2025-03-07 09:44] LABS: HCT 36.1 % (37.2-46.3); HGB 11.9 g/dL (12.0-15.0); MCH 31.1 pg (27.0-32.0); MCHC 33.0 g/dL (32.0-37.0); MCV 94.3 FL (80.0-97.0); NRBC Per 100 WBC 0 X 10*3/uL (0.00-0.01); Platelet Count 237 X 10*3/uL (140-440); RBC 3.83 X 10*6/uL (4.10-5.20); RDW 12.1 % (11.5-14.5); WBC 5.58 X 10*3/uL (4.50-10.00)
[2025-03-07 09:56] LABS: ALT 13 U/L (8-44); AST 18 U/L (13-35); Albumin 3.6 g/dL (3.8-4.9); Albumin/Globulin Ratio 1.57 Ratio (1.60-3.17); Alkaline Phosphatase 65 U/L (41-126); Anion Gap 9.30 mmol/L (4.00-12.00); BUN/Creat Ratio 10.14 Ratio (12.00-20.00); Blood Urea Nitrogen 7.1 mg/dL (9.0-27.0); Calcium 9.1 mg/dL (8.7-10.3); Carbon Dioxide 24.7 mmol/L (21.6-31.8); Chloride 105 mmol/L (96-109); Globulin 2.3 g/dL (1.6-3.3); Glucose 89 mg/dL (70-110); Magnesium 2.0 mg/dL (1.5-2.4); Potassium 3.9 mmol/L (3.5-5.5); Sodium 139 mmol/L (135-145); Total Protein 5.9 g/dL (6.2-8.2)
--- NOTE | 2025-03-07 11:24 | P.DS ---
Providers Date of admission: 03/04/25 22:23 Expected date of discharge: 03/07/25 Attending physician: Jemima Neri MD Primary care physician: Marvel [facility] Course: Discharge Diagnosis: Acute pancreatitis, recurrent episodes. Patient had full resolution of previous epigastric pain/discomfort and denied any further episodes of nausea or vomiting. She received aggressive IV fluid hydration, antiemetics and IV pain medication during hospitalization. Diet was slowly advanced and patient tolerating well. Patient was strongly educated on the i recommendations to avoid any further use of GLP-1 use in the future. Patient verbalized understanding. It was also recommended that patient follow-up with inspector firearms for further evaluation secondary to recurrent episodes of pancreatitis. Lactic acidosis. Resolved with IV fluid hydration. Hypercalcemia. Resolved with IV fluid hydration. High anion gap metabolic acidosis. Resolved with IV fluid hydration. Hypomagnesemia. Resolved. Hypothyroidism. Continue levothyroxine 88 mcg daily. Hospital Course: Patient is a pleasant 60-year-old female with a past medical history of pancreatitis, bariatric surgery with previous gastric sleeve, cholecystectomy, and hypothyroidism. She presented to the hospital on 02/28/2025 secondary to epigastric pain and nausea. Patient reported history of pancreatitis in the past when she was previously on a GLP-1 and reports she was again restarted on GLP-1 Zepbound last week and pain is similar to previous episode of pancreatitis. Upon arrival at her facility, patient underwent evaluation in the emergency department. Vital signs upon arrival show blood pressure 107/68, heart rate 69, respiratory rate 17, temp 98.1 F, and SpO2 of 100% on room air. EKG completed showing sinus rhythm at 65 bpm. Labs completed and reviewed. CBC showing elevated MCH of 32.3 and low MPV of 9.4. Coagulation profile normal findings. BMP showing high anion gap metabolic acidosis with chloride of 107, bicarb of 20, and anion gap of 12. BUN elevated at 20. Blood glucose 114. Lactic acid 3.5. Calcium elevated at 10.3. Liver profile unremarkable. Troponin negative at less than 0 Liverel's .012. Amylase 2043 and lipase greater than 20,000. Urinalysis negative for infection. CT abdomen and pelvis showing findings compatible with acute pancreatitis with no drainable pancreatic fluid collection or abscess reported. Patient admitted under services at this time. Liver ultrasound showing heterogeneous appearance to the visualized portions of the pancreas in keeping with patient's acute interstitial pancreatitis seen on CT, again reporting no fluid collection appreciated by ultrasound and bile ducts upper limits of normal in caliber likely due to postcholecystectomy status and patient's age. Patient was admitted under our services. She received continuous IV fluid hydration and diet was slowly advanced. Patient had full resolution of previous pain/discomfort and denied any further episodes of nausea or vomiting. Patient was strongly educated on the i recommendations to avoid any further use of GLP-1 use in the future. Patient verbalized understanding. It was also recommended that patient follow- up with inspector firearms for further evaluation secondary to recurrent episodes of pancreatitis. Physical exam: Patient seen full evaluated at bedside this morning. She reports pain remains resolved and continues to deny having any nausea, or vomiting. Diet was advanced to full liquid yesterday and regular low-fat diet this morning. Patient tolerated well and reports feeling back at her normal self and ready for discharge home. Vital signs reviewed and stable. General: Nontoxic, no distress and appears stated age. Derm: Skin warm and dry, normal coloration for ethnicity. Head: Atraumatic, normocephalic and symmetric. Eyes: EOM's intact, no lid lag, and anicteric sclera Mouth: no lip lesions, mucus membranes moist Cardiovascular: regular rate and rhythm with normal S1S2, no murmur, positive posterior tibial pulses bilaterally, and cap refill < 2 seconds. Lungs: Respirations even, regular, and unlabored on room air. Lungs CTA bilaterally, no rhonchi, no rales, no wheezing, and no accessory muscle usage. Abdominal: soft, no tenderness upon palpation. No guarding, no appreciable organomegaly Ext: ROM intact. No gross muscle atrophy, no edema, no contractures Neuro: Speech clear, face symmetrical and CN II-XII grossly intact with no noted focal neuro deficits Psych: Alert and oriented to person, place, time, and situation. Appropriate and pleasant affect. A total of 34 minutes of time were spent preparing this complex discharge summary. Pt was discharged on 03/07/2025 at 11:21 AM. Patient was seen independently by Nurse Practitioner. This document was prepared using [employer] MD dictation software. Please allow for errors in metal moulder while rare they do occur. Deejay Easton NP rendered care for this patient independently, reviewed the findings and plan as documented in the note above. I did not physically speak with or examine the patient on this date. Patient Condition at Discharge: Stable Plan - Discharge Summary New Discharge Prescriptions: Continue Biotin(Unknown Dose) 1 tab PO DAILY Vitamin B-12(Unknown Dose) 1 tab PO DAILY Iron(Unknown Dose) 1 tab PO DAILY Ipratropium [place] 0.06%Nasal [Atrovent Nasal 0.06%] 2 spr EA NOSTRIL TID PRN PRN Reason: Allergy Symptoms ALPRAZolam [Xanax] 0.25 mg PO DAILY PRN PRN Reason: Anxiety Vitamin D3(Unknown Dose) 1 tab PO DAILY No Action Levothyroxine Sodium [Synthroid] 88 mcg PO DAILY Discharge Medication List Levothyroxine Sodium [Synthroid] 88 mcg PO DAILY 03/31/20 [History] ALPRAZolam [Xanax] 0.25 mg PO DAILY PRN 03/05/25 [History] Biotin(Unknown Dose) 1 tab PO DAILY 03/05/25 [History] Ipratropium [place] 0.06%Nasal [Atrovent Nasal 0.06%] 2 spr EA NOSTRIL TID PRN 03/05/25 [History] Iron(Unknown Dose) 1 tab PO DAILY 03/05/25 [History] Vitamin B-12(Unknown Dose) 1 tab PO DAILY 03/05/25 [History] Vitamin D3(Unknown Dose) 1 tab PO DAILY 03/05/25 [History] Follow up Appointment(s)/Referral(s): Marvel Ortiz MD [Primary Care Provider] - 1-2 days (Office is closed at time of discharge. Please call for follow-up appointment.) Brittany Gonsales MD [STAFF PHYSICIAN] - 1 Week (Office is closed at time of discharge. Please call for follow-up appointment.) Patient Instructions/Handouts: Pancreatitis (DC) Activity/Diet/Wound Care/Special Instructions: Activity: As tolerated. Take breaks as needed. Diet: Heart healthy, low-fat and carb consistent diet. Special Instructions: Take all of your medications as directed and remember to keep all of your doctor's appointments and follow-up as needed. As discussed, strongly recommend avoidance of GLP-1 use in the future. It was also recommended that you follow-up outpatient with inspector firearms for further evaluation secondary to recurrent episodes of pancreatitis. Thank you for allowing us to participate in your care, it was truly a pleasure having you for our patient!!! Discharge Disposition: HOME SELF-CARE
== END 2025-03-07 11:55 | disposition home or self-care (01) | DRG 439 ==
LOC: EC 19:26 → 1SOBS 22:23 → 4SSUR 03-05 00:37
PROVIDERS: ADMIT Internal Medicine; ATTEND Internal Medicine
DX: K85.30 Drug induced acute pancreatitis without necrosis or infection (principal); E87.20 Acidosis, unspecified; E03.9 Hypothyroidism, unspecified; D64.9 Anemia, unspecified; E83.52 Hypercalcemia; E83.42 Hypomagnesemia; T50.995A Adverse effect of other drugs, medicaments and biological substances, initial encounter; Z79.890 Hormone replacement therapy; Z98.84 Bariatric surgery status; Z80.0 Family history of malignant neoplasm of digestive organs
CPT/HCPCS: 36415; 74177; 76705; 80053; 81001; 82150; 82787; 83605; 83690; 83735; 84478; 84484; 85025; 85027; 85610; 85730; 93005; 96361; 96374; 96375; 99285